=== PATIENT | female | born 1935 | race Caucasian/White ===

== ENCOUNTER 2023-05-19 15:33 | Inpatient (IN) | payer MEDICARE, OTHER, SELFPAY ==
[2023-05-19] VITALS (9 sets, daily range): BP systolic 84–124; BP diastolic 43–70; BMI 20.6; BMI 19.0
[2023-05-19 14:09] LABS: % Basophils 0.3 % (0-2); % Eosinophils 0.9 % (0-6); % Immature Granulocytes 0.4 % (0-0.5); % Lymphocytes 16.1 % (20.5-51.1); % Monocytes 13.3 % (1.7-9.3); Absolute Eosinophils 0.1 10^3/uL (0-0.7); Absolute Lymphocytes 1.4 10^3/uL (1.2-3.4); Absolute Monocytes 1.2 10^3/uL (0.1-0.6); Absolute Neutrophils 6.2 10^3/uL (1.4-6.5); Hematocrit 33.2 % (37.0-47.0); Hemoglobin 11.4 g/dL (12.0-16.0); Mean Corp Hgb Conc. 34.3 g/dL (33.0-37.0); Mean Corpuscular Hgb 31.8 pg (27.0-31.0); Mean Corpuscular Volume 92.7 fL (81.0-99.0); Mean Platelet Volume 11.5 fL (7.4-10.4); Nucleated Red Blood Cells % 0 %; Platelet Count 208 10^3/uL (130-400); Red Blood Cell Count 3.58 10^6/uL (4.20-5.40); Red Cell Dist. Width 19.2 % (11.5-14.5)
[2023-05-19 14:13] LABS: INR 1.36; PT 16.9 Sec (11.4-14.6)
[2023-05-19 14:16] LABS: Lactic Acid 1.3 mmol/L (0.7-2.0)
[2023-05-19 14:19] LABS: ALT (SGPT) 16 U/L (0-35); AST (SGOT) 19 U/L (14-36); Albumin 3.8 g/dl (3.5-5.0); Alkaline Phosphatase 93 U/L (38-126); Blood Urea Nitrogen 110 mg/dl (7-17); Calcium 9.6 mg/dl (8.4-10.2); Carbon Dioxide 22 mmol/L (22-30); Chloride 99 mmol/L (98-107); Estimated Creatinine Clearance 16 ml/min; Glucose 155 mg/dl (70-99); Sodium 133 mmol/L (135-145); Total Bilirubin 0.8 mg/dl (0.2-1.3); eGFR 22.11
[2023-05-19 14:34] LABS: Potassium 5.3 mmol/L (3.5-5.1)
[2023-05-19 14:37] LABS: Erythrocyte Sed Rate 29 mm/hour (0-20)
--- NOTE | 2023-05-19 14:42 | ED.GENMED ---
History of Present Illness
General
Chief Complaint: Skin Problem
Time Seen by Provider: 05/19/23 13:42
Travel History
Have you had any contact with someone who has COVID-19?: No
Do you have any symptoms of coronavirus? Fever > 100 degrees, chills, cough, shortness of breath, sore throat, loss of taste or smell, muscle aches, or headache?: No
History of Present Illness
History of Present Illness:
87-year-old female with history of A-fib and peripheral arterial disease presents to the emergency department for evaluation of necrosis to the right second toe. States that it developed as a small wound approximately 2 weeks ago and is gradually
progressed. She has been following with wound care at [facility] and they were concerned for the progression of symptoms and advised that she follow-up with vascular surgery. She is here today requesting vascular surgery consultation. She did
have ABIs performed yesterday, I was able to see the reports provided by the patient's family shown severe bilateral peripheral arterial disease:
Right posterior tibial noncompressible, right dorsalis pedis 0.27, right first digit noncompressible, left posterior tibial 0.27, left dorsalis pedis 0.53, and left first digit 0.14
She denies any fevers but does have mild pain in the right second toe. She is anticoagulated on Eliquis
Review of Systems
Review of Systems
Allergies reviewed?: Yes
All Other Systems: ROS reviewed and negative except as documented in HPI and ROS
Phy Exam
Physical Exam
Physical Exam:
GEN: Well appearing, NAD, WDWN
Eyes: PERRLA, EOMs intact, no scleral icterus
HENT: NCAT, oral mucosa moist
Lungs: CTAB, no wheezes, rales, rhonchi, normal chest wall excursion
Cardiac: Irregular, normal rate
Neuro: AO x 3, no focal deficits to BUE/BLE, normal sensation throughout
MSK: No gross deformity or ecchymosis. No edema. No digital clubbing
Skin: Dry gangrene of the distal right second toe, the digit is diffusely erythematous extending to the dorsum of the midfoot with scant lymphangitis. Right dorsalis pedis pulse is not found by Doppler, right posterior tibialis is strong and
biphasic by Doppler
Psych: Calm, cooperative, proper hygiene
Course
Orders/Labs/Results
Orders:
Orders
05/19/23 13:42
Cardiac Monitoring- Treatment ONCE
IV Insert/Care/Rem.- Treatment PRN
O2 Therapy [RESP] Urgent
Titrate/Wean O2 to maintain O2 sat greater than (%): 93
Special Instructions: TO MAINTAIN CONTINUOUS O2 SATS > OR = 93%
Pulse Ox/cont/shift [RESP] Urgent
Quantity: 1
Special Instructions: CONTINUOUS
05/19/23 13:44
C-Reactive Protein Urgent
Comment: ADD ON
Complete Blood Count/With Diff Urgent
Comprehensive Metabolic Panel Urgent
Erythrocyte Sed Rate Urgent
Comment: ADD ON
Lactic Acid Q4H
Comment: ON ICE, CANCEL 2ND ORDER IF FIRST LACTIC ACID LEVEL <2
Prothrombin Time Urgent
Blood Culture Q30M
DILAN Source: Blood/Venous
Specimen Description:
Comment: FROM 2 SEPARATE SITES
05/19/23 13:58
Add On- LAB Urgent
Tests Added?: ESR, CRP
CR Toe(s) Min 2 Vw Right Urgent
Comment:
Reason For Exam: distal 2nd toe wound
05/19/23 14:57
0.9% Sodium Chloride 1000 ml [Nss] 1,000 ml IV BOLUS
05/19/23 15:06
Blood Culture Q30M
DILAN Source: Blood/Venous
Specimen Description:
Comment: FROM 2 SEPARATE SITES
05/19/23 15:20
Vancomycin [Vancocin] 1,500 mg 0.9% Sodium Chloride [Nss] 20 ml 0.9% Sodium Chloride 250 ml [Nss] 250 ml IV NOW
05/19/23 15:27
Admit/Transfer Patient As Directed
Co-Sign Provider:
Level of Care: Inpatient admission
Assign to:: Medical/Surgical
Physician / Group: Thee
Diagnosis: Gangrene of toe
Reason for Hospitalization: Gangrene and cellulitis of toe
Expected length of stay greater than two midnights?: Yes
ELOS- Estimated Length of Stay in days: 3
I certify the patient meets the requirements for IP care: Yes
Abnormal Lab Results
05/19/23
13:44
RBC 3.58 L 10^6/uL
(4.20-5.40)
Hgb 11.4 L g/dL
(12.0-16.0)
Hct 33.2 L %
(37.0-47.0)
MCH 31.8 H pg
(27.0-31.0)
RDW 19.2 H %
(11.5-14.5)
MPV 11.5 H fL
(7.4-10.4)
Absolute Monos (auto) 1.2 H 10^3/uL
(0.1-0.6)
Lymphocytes % 16.1 L %
(20.5-51.1)
Monocytes % 13.3 H %
(1.7-9.3)
ESR 29 H mm/hour
(0-20)
PT 16.9 H Sec
(11.4-14.6)
Sodium 133 L mmol/L
(135-145)
Potassium 5.3 H mmol/L
(3.5-5.1)
BUN 110 H* mg/dl
(7-17)
Creatinine 2.1 H mg/dL
(0.6-1.0)
Glucose 155 H mg/dl
(70-99)
C-Reactive Protein 44.30 H mg/L
(0.0-10.00)
Total Protein 6.0 L g/dl
(6.3-8.2)
05/19/23 13:44
05/19/23 13:44
Vital Signs
Initial and Last Documented VS:
Initial Vital Signs
Temp Pulse Resp BP Pulse Ox
98.2 F 62 18 84/43 100
05/19/23 13:13 05/19/23 13:13 05/19/23 13:13 05/19/23 13:13 05/19/23 13:13
Last Documented Vital Signs
Temp Pulse Resp BP Pulse Ox
98.2 F 63 27 112/50 99
05/19/23 13:13 05/19/23 16:00 05/19/23 16:00 05/19/23 16:00 05/19/23 16:00
MDM/Problems Addressed
MDM/Problems Addressed:
Patient with gangrenous changes to the toe with associated erythema concerning for cellulitis versus osteomyelitis. She has severe peripheral arterial disease based on ABIs done outpatient yesterday and right dorsalis pedis pulses diminished on
exam today. She is currently clinically well, mildly hypotensive but this apparently has been ongoing for quite some time. She is also noted to be profoundly uremic although has no acute encephalopathic changes. Vascular surgery and podiatry are
consulted for this patient, podiatry will see at the bedside in the ER. Certainly may require operative intervention given the gaseous changes on x-ray however she is high risk for anything surgical or vascular disease and renal dysfunction. Will
admit to the hospital service, IV antibiotics initiated
*Critical Care Note
Total Time (30-74mins, 75-104mins- exclusive of procedures): Not Applicable
ED Attending Note
-
Portions of this chart may have been created with voice recognition software.� Occasional wrong word or��sound alike� substitutions may have occurred due to the inherent limitations of voice recognition software.
Discharge Plan
Departure
Patient Disposition: Admit
Date of Disposition: 05/19/23
Time of Disposition: 15:01
Presentation/result/management discussed w/ accepting MD/DO: Hospitalist
Discharge Problem:
Gangrene of toe of right foot, Cellulitis of second toe, right, Peripheral arterial disease
Interventions
Interventions:
*Risk Screen - Suicide Last Done: 05/19/23 13:13
*General Assessment Last Done: 05/19/23 13:13
*Neglect/Abuse Screening Last Done: 05/19/23 13:57
ED- Fall Risk Assessment Last Done: 05/19/23 13:53
*ED COVID-19 Vaccine History Last Done: 05/19/23 13:13
ED-Skin Assessment Last Done: 05/19/23 13:53
[2023-05-19] MEDS: NSS 1000 IV (15:06)
[2023-05-19] MEDS: VANCOCIN 300 ML IV (15:48)
[2023-05-19] MEDS: VANCOCIN 300 MG IV (15:48)
--- NOTE | 2023-05-19 15:49 | HPS.HSE ---
Family Physician
-
Family Physician: Dylan Pretty
Chief Complaint
-
Right second toe wound
History of Present Illness
87-year-old female who never been in our hospital with known history of chronic systolic congestive heart failure with EF around 25% and likely this issue with the blood pressure and her Cardiology making some adjustment of blood pressure., chronic
kidney disease with none of the baseline's as well as diabetes and PVD, sent from wound care for evaluation of infected and what sounds like a gangrenous right second toe, started to small wound and blood progressively worsening pain follow-up with
the wound clinic and eventually was asked to see a vascular surgeon and therefore they came to the hospital, denies any fever or chill or cough or congestion, no trauma or accident. Look like she was seen by youth development professional and they do not some foot
work and according to the patient this is happened after that visit there is a small wound and progress gradually. No some pain and discomfort takes tramadol which helped her pain out.
Workup in the ER concerning for gangrenous.
ER physician did reach out to vascular surgeon Dr. Wall.
Patient had arterial ultrasound done yesterday as an outpatient and the results showed per family.
Right posterior tibial noncompressible, right dorsalis pedis 0.27, right first digit noncompressible, left posterior tibial 0.27, left dorsalis pedis 0.53, and left first digit 0.14
She denies any fevers but does have mild pain in the right second toe.
She is anticoagulated on Eliquis.
The x-ray shows some gas
Will reach out to podiatry in the coming down to see the patient and ER.
Accompanied by 2 daughters at the bedside.
She is awake, alert and oriented x 3 hold appropriate conversation
Medical History
Past Medical History
Past Medical History: Reports Other
Additional Past Medical History:
Past medical history reviewed:
Diabetes
Hypertension
Dyslipidemia
Congestive heart failure sound like systolic EF around 2025%
A-fib anticoagulated with Eliquis
PVD
Chronic kidney disease
Social history: Lives with the family, no smoking alcohol use.
Family history: Reviewed and noncontributory
Past Surgical History: Reports Other
Social History
Unable to obtain full social history at this time due to: Other
Family History
Family History: Other
Allergies / Home Medications
Allergies reflects when Allergies were last updated in [employer].
Home Medications with original date entered in [employer]
Allergy/Medication List:
Allergies
Allergy/AdvReac Type Severity Reaction Status Date / Time
latex Allergy Unknown Verified 05/19/23 13:13
Home Medications
allopurinol 100 mg tablet 100 mg PO DAILY 05/19/23
apixaban 2.5 mg tablet (Eliquis) 2.5 mg PO BID 05/19/23
carvedilol 6.25 mg tablet (Coreg) 6.25 mg PO BID 05/19/23
furosemide 20 mg tablet (Lasix) 20 mg PO DAILY 05/19/23
glimepiride 2 mg tablet 2 mg PO DAILY 05/19/23
minocycline 100 mg capsule 100 mg PO BID 05/19/23
sacubitril 24 mg-valsartan 26 mg tablet (Entresto) 1 tab PO BID 05/19/23
spironolactone 25 mg tablet 25 mg PO DAILY 05/19/23
Review of Systems
-
A 12 point ROS was completed and negative except as noted: Yes
Physical Exam
Vital Signs
Vital Signs
Temp Pulse Resp BP Pulse Ox
98.2 F 66 17 86/65 99
05/19/23 13:13 05/19/23 15:30 05/19/23 15:30 05/19/23 15:00 05/19/23 15:30
Physical exam:
General: Awake, alert and oriented x3, not in distress and holds appropriate conversation.
HEENT: No active discharge, ecchymosis or bruising, moist lips, tongue and mucous membrane.
Eyes: No discharge or red conjunctiva, no nystagmus, pupils are reactive and equal
Neck:Supple, no JVD no bruit no goiter.
Respiratory: Normal AP contour and diameter, normal chest wall movement, normal respiratory effort, no respiratory distress,
Lungs: Good air entry bilaterally, no wheezing or rhonchi, no rales or crackles
Heart: S1, S2 regular, normal rate, no added sound.
Gastrointestinal: Positive bowel sounds, soft, nontender, no guarding or rigidity or organomegaly
Musculoskeletal: , no chest wall abnormality or tenderness. All joints and extremities have good range of motion, no muscle tenderness or any joint swelling or tenderness.
Extremities: No pitting edema, good peripheral pulses, good range of motion
Skin: Warm and dry, no ulceration, normal color.
Neurological: Awake, alert and oriented x3, cranial nerve II-XII grossly intact, speech clear and comprehensive, good muscle tone, normal sensory and motor function
Psychiatric: Normal mood, normal thought and judgment, normal affect,
Physical Exam
General: Other
Laboratory Results
-
05/19/23 13:44
05/19/23 13:44
Laboratory Results
PT 16.9 Sec (11.4-14.6) H 05/19/23 13:44
INR 1.36 05/19/23 13:44
Lactic Acid Cancelled 05/19/23 17:45
Total Bilirubin 0.8 mg/dl (0.2-1.3) 05/19/23 13:44
AST 19 U/L (14-36) 05/19/23 13:44
ALT 16 U/L (0-35) 05/19/23 13:44
Alkaline Phosphatase 93 U/L (38-126) 05/19/23 13:44
Right foot x-ray:
Imaging of the right second toe reveals gas within the soft tissues distally. No definite erosive change of the bone however osteomyelitis is better evaluated with MRI.
The findings suggest dislocation of the DIP joint of the right third toe, please correlate clinically. The rest of the toes are poorly visualized on this exam of the second toe.
Data Reviewed
-
Diagnostic Radiology: Image Personally Visualized and interpreted, Discussed with Physician, Discussed with Patient and Discussed with Family
Lab Data: Labs Reviewed by me, Discussed with Physician, Discussed with Patient and Discussed with Family
Old Records: Reviewed
Impression/Plan
-
IMPRESSION:
87-year-old female with history of diabetes, PVD and congestive heart failure sent to the hospital from the wound clinic for evaluation of the second right toes gangrene and x-ray showed gas, vascular surgeon been contacted.
Right second toe gangrene with history of PVD and diabetes mellitus
-Cellulitis of the right second toe
Chronic kidney disease with not now baseline
Congestive heart failure sounding systolic, EF around 25 to 30%
A-fib
Diabetes mellitus
Hypertension
Mild hyperkalemia
PLAN:
Vascular surgery and podiatry will reach out to
Podiatry to come see the patient currently in OR
Keep n.p.o.
Hold Eliquis and hold off heparin anyway in case of the need the patient to the OR if there is no plan then Eliquis versus heparin drip could be started
Cover the broad-spectrum antibiotic with vancomycin and cefepime renally dose
Tylenol and Ultram as needed
I will hold Entresto because of the low normal blood pressure and hyperkalemia
Recheck lab
Avoid IV fluid because of the chronic systolic congestive heart failure
Hold glimepiride
Glucoscan monitor blood sugar
Continue carvedilol.
In case goes to the OR needs close monitoring of the fluid status and vital sign and blood sugar perioperatively.
All discussed with the patient and the 2 daughters at the bedside
CODE STATUS full code
DVT prophylaxis not a candidate for SCD because of the severe PVD and no anticoagulation yet in case goes to the OR.
--- NOTE | 2023-05-19 15:59 | PHA.VAN.IN ---
Assessment
- Assessment
Renal Function: Unknown baseline
Concomitant Antimicrobials: cefepime
Plan
- Plan
Initial / Loading Dose: 1500mg - 05/18 15:48
Maintenance Regimen: dosing by level
Monitoring: random 05/19 06
Pharmacokinetics Vancomycin I
- -
Patient Age: 87
Patient Sex: Female
Vancomycin Day #: 1
Indication: Bone And Joint
Requesting Provider: Dr. Kingston
Pertinent Antimicrobial Allergies:
no pertinent antibiotic allergies
Height / Weight:
Height 5 ft 4 in
Actual Weight 54.4 kg
Pertinent Past Medical History: CKD, DM, PVD
- Vital Signs / Lab Results
Temp Pulse Resp BP Pulse Ox
98.2 F 66 17 86/65 99
05/19/23 13:13 05/19/23 15:30 05/19/23 15:30 05/19/23 15:00 05/19/23 15:30
Lab Results - Hematology
05/19/23
13:44
WBC 9.0
Lab Results - Chemistry
05/19/23
13:44
BUN 110 H*
Creatinine 2.1 H
Estimated Creat Clear 16
Albumin 3.8
05/19/23 05/19/23
13:44 17:45
Lactic Acid 1.3 Cancelled
--- NOTE | 2023-05-19 17:48 | W.PN.UPDATE ---
Update Note
Progress Note Update
pt seen in ER
full consult dictated
dry gangrenous toe right foot
2nd toe debrided and stab incision placed
toe opened and packed, no pus noted
area decompressed in ER
will follow
[2023-05-19] MEDS: STERILE WATER FOR INJECTION 10 ML IV (18:40)
[2023-05-19] MEDS: MAXIPIME 1000 MG IV (18:40)
[2023-05-19] MEDS: NOVOLOG FLEXPEN-MODERATE RESISTANCE SC (19:42)
[2023-05-19] MEDS: COREG PO (20:14)
[2023-05-19] MEDS: ENTRESTO 24 MG/26 MG PO (20:15)
[2023-05-20 05:48] LABS: % Basophils 0.4 % (0-2); % Immature Granulocytes 0.4 % (0-0.5); % Monocytes 18.5 % (1.7-9.3); % Neutrophils 56.7 % (42.2-75.2); Absolute Eosinophils 0.2 10^3/uL (0-0.7); Absolute Lymphocytes 1.5 10^3/uL (1.2-3.4); Absolute Monocytes 1.3 10^3/uL (0.1-0.6); Hematocrit 34.6 % (37.0-47.0); Hemoglobin 11.3 g/dL (12.0-16.0); Mean Corp Hgb Conc. 32.7 g/dL (33.0-37.0); Mean Corpuscular Hgb 30.6 pg (27.0-31.0); Mean Corpuscular Volume 93.8 fL (81.0-99.0); Mean Platelet Volume 11.2 fL (7.4-10.4); Nucleated Red Blood Cells % 0 %; Platelet Count 190 10^3/uL (130-400); Red Blood Cell Count 3.69 10^6/uL (4.20-5.40); Red Cell Dist. Width 18.8 % (11.5-14.5)
[2023-05-20 06:00] VITALS: BMI 19.0
[2023-05-20 06:04] LABS: Blood Urea Nitrogen 99 mg/dl (7-17); Calcium 9.8 mg/dl (8.4-10.2); Carbon Dioxide 19 mmol/L (22-30); Chloride 108 mmol/L (98-107); Estimated Creatinine Clearance 17 ml/min; Glucose 76 mg/dl (70-99); Potassium 5.4 mmol/L (3.5-5.1); Sodium 139 mmol/L (135-145)
[2023-05-20 06:19] LABS: Vancomycin Random 16.9 ug/ml
[2023-05-20 07:14] VITALS: BP 99/58
--- NOTE | 2023-05-20 07:53 | W.PN.POD ---
Today's Communication
Today's Communication
dry gangrene right 2nd toe--stable, packing pulled, C&S taken, no pus, repacked, d/w dr cain yesterday.
pt will need amp 2nd toe pending vasc status
will follow
vasc--please call me with plan
Subjective
Chief Complaint
pt seen at bedside for dry gangene to toe right foot 2nd toe
denies pain f/c
Subjective
vasc pedal pulses non palp cft intact to other toes
derm dry gangrene to 2nd toe right foot, npo pus, no cellulitis, no odor, no pus, dry
Objective
Temp Pulse Resp BP Pulse Ox
97.6 F 67 16 99/58 99
05/20/23 07:14 05/20/23 07:14 05/20/23 07:14 05/20/23 07:14 05/20/23 07:14
05/20/23 05:09
05/20/23 05:09
Vital Signs and Lab results were reviewed.
[2023-05-20 08:19] LABS: Glycohemoglobin (HgbA1c) 8.7 % (4.0-5.6)
--- NOTE | 2023-05-20 08:28 | PHA.VAN.FU ---
Vancomycin Assessment / Plan
- Assessment
Renal Function: SCR Decreasing (2.1->1.8)
WBC's are: WNL
In the past 24 hrs, patient has been: Afebrile
Concomitant Antimicrobials: cefepime
- Assessment - Therapeutic Drug Monitoring
Random Level: 16.9 ~ 13 hours post 1500 mg dose
- Dosing Plan
Continue: dose by random level due to elevated SCr
Dosing by Level: Hold off on dosing today
- Monitoring Plan
Random Level: repeat random level AM 05/21/23
- Follow Up
Pharmacy will continue to follow.
Vancomycin Follow UP
- -
Patient Age: 87
Patient Sex: Female
Vancomycin Day #: 2
Indication: Bone And Joint
Requesting Provider: Dr. Kingston
Pertinent Antimicrobial Allergies:
no pertinent antibiotic allergies
Height / Weight:
Height 5 ft 4 in
Actual Weight 50.065 kg
Pertinent Past Medical History: CKD, DM, PVD
- Vital Signs / Lab Results
Temp Pulse Resp BP Pulse Ox
97.6 F 67 16 99/58 99
05/20/23 07:14 05/20/23 07:14 05/20/23 07:14 05/20/23 07:14 05/20/23 07:14
Lab Results - Hematology
05/19/23 05/20/23
13:44 05:09
WBC 9.0 7.0
Lab Results - Chemistry
05/19/23 05/20/23
13:44 05:09
BUN 110 H* 99 H
Creatinine 2.1 H 1.8 H
Estimated Creat Clear 16 17
Albumin 3.8
05/19/23 05/19/23
13:44 17:45
Lactic Acid 1.3 Cancelled
Therapeutic Drug Monitoring
Random Vancomycin 16.9 ug/ml 05/20/23 05:09
[2023-05-20] MEDS: ENTRESTO 24 MG/26 MG 1 TAB PO (08:34)
[2023-05-20] MEDS: ZYLOPRIM 100 MG PO (08:35)
[2023-05-20] MEDS: COREG 6.25 MG PO ×2 (08:35→20:05)
[2023-05-20] MEDS: ALDACTONE 25 MG PO (08:35)
[2023-05-20] MEDS: LASIX 20 MG PO (08:35)
[2023-05-20 09:25] LABS: Glucose - Point of Care 94 mg/dl (70-99)
[2023-05-20] MEDS: NOVOLOG FLEXPEN-MODERATE RESISTANCE SC ×3 (09:44→19:11)
[2023-05-20] MEDS: LOKELMA 10 GRAM PO (10:46)
[2023-05-20 13:40] VITALS: BMI 19.0
--- NOTE | 2023-05-20 14:19 | W.PN.HOSP.TC ---
Addendum entered and electronically signed by Chevy Da Silva MD 05/20/23 15:42:
stopping abx- dry gangrene; spencer stopping vanco in setting of eveline
Original Note:
Today's Communication/Plan
-
iv lasix
nephro consulted
stop entresto
k treatment
vascular consulted - tentative angio next tuesday
Assessment / Plan
Assessment / Plan
Physical exam:
General: Awake, alert and oriented x3, not in distress and holds appropriate conversation.
HEENT: No active discharge, ecchymosis or bruising, moist lips, tongue and mucous membrane.
Eyes: No discharge or red conjunctiva, no nystagmus, pupils are reactive and equal
Neck:Supple, no JVD no bruit no goiter.
Respiratory: Normal AP contour and diameter, normal chest wall movement, normal respiratory effort, no respiratory distress,
Lungs: Good air entry bilaterally, no wheezing or rhonchi, no rales or crackles
Heart: S1, S2 regular, normal rate, no added sound.
Gastrointestinal: Positive bowel sounds, soft, nontender, no guarding or rigidity or organomegaly
Musculoskeletal: , no chest wall abnormality or tenderness. All joints and extremities have good range of motion, no muscle tenderness or any joint swelling or tenderness.
Extremities: No pitting edema, good peripheral pulses, good range of motion
Skin: dry gangrene to 2nd toe right foot, no cellulitis, no odor, no pus, dry
Neurological: Awake, alert and oriented x3, cranial nerve II-XII grossly intact, speech clear and comprehensive, good muscle tone, normal sensory and motor function
Psychiatric: Normal mood, normal thought and judgment, normal affect,
87-year-old female with history of diabetes, PVD and congestive heart failure sent to the hospital from the wound clinic for evaluation of the second right toes gangrene and x-ray showed gas,
#Right second toe gangrene with history of PVD and diabetes mellitus
-podiatry and vascular consulted
-Angiogram planned for next week
-Will require amputation
#EVELINE
-Scr 1.0 in january
-Vascular requesting nephro consult
-Most likely cardiorenal with EF of 20-25%
-stop entresto
-IV lasix, continue PO dosing otherwise
#Hyperkalemia
-2/2 to EVELINE
-lokelma
-stop entresto
-spironolactone continued due to assistance in diuretics
Acute on Chronic HFrEF
-EF 20-25%
-hold entresto due to EVELINE
-Cont spironolactone
-Scr coming down
-IV Lasix today
-add on probnp
#Afib
start hep ggt
cont coreg
Diabetes mellitus
Hypertension
-cont aiss
-cont spironolactone
#DVT ppx
-Hep ggt
Total time spent on today's encounter was 50 minutes which included time spent in counseling the patient/family regarding diagnosis and treatment plan as listed above, goals of care, and symptom management. Case was discussed with nursing staff,
specialists, and care coordinators/case management. All labs and imaging personally reviewed by me. Remainder the time spent in detailed review of previous records, lab data, imaging, and other medical provider documentation.
Anticipated Discharge: > 48 hours
Subjective/Interval History
-
Date of Service: May 20, 2023
will need to plan for angio and improvement in renal function
Objective Data
-
Labs:
Laboratory Results
05/20/23
05:09
WBC 7.0
Hgb 11.3 L
Hct 34.6 L
Plt Count 190
Sodium 139
Potassium 5.4 H
Chloride 108 H
Carbon Dioxide 19 L
BUN 99 H
Creatinine 1.8 H
Glucose 76
Calcium 9.8
Vital Signs:
Vital Signs
Temp Pulse Resp BP Pulse Ox
97.6 F 67 16 99/58 99
05/20/23 07:14 05/20/23 07:14 05/20/23 07:14 05/20/23 07:14 05/20/23 07:14
Review of Systems
-
History Source: Patient
All other systems: Not reviewed unless documented
Physical Exam
-
General: Well Developed
Data Reviewed
-
Diagnostic Radiology: Image personally visualized and interpreted and Report Reviewed by me
Labs: Labs Reviewed by me
--- NOTE | 2023-05-20 14:28 | CON.VAS ---
Consultation
Consultation Request
Date/Time Consultation Requested: 05/20/23
Date/Time Consultation Performed: 05/20/23
Performing Provider: Mae
Reason for Consultation: PAD; right toe gangrene
Medical History
-
Chief Complaint: Right toe gangrene
History of Present Illness:
87 yo with PAOD
~1 month of progressive pain and gangrene in the toe
Daughter bedside
Grossly abnormal JUANA's at OSH (report viewed)
Recent TTE 20-25%
Past Medical History
Past Medical History: CHF, HTN and Hypercholesterolemia
Social History
Tobacco: Non-Smoker
Allergies / Home Medications
Allergy/AdvReac Type Severity Reaction Status Date / Time
latex Allergy Unknown Verified 05/19/23 13:13
�Medication �Instructions �Recorded �Confirmed �Type
allopurinol 100 mg tablet 100 mg PO DAILY Gout 05/19/23 05/19/23 History
apixaban 2.5 mg tablet (Eliquis) 2.5 mg PO BID Blood Clot 05/19/23 05/19/23 History
Prevention/Tx
carvedilol 6.25 mg tablet (Coreg) 6.25 mg PO BID Heart 05/19/23 05/19/23 History
Disease/Condition
furosemide 20 mg tablet (Lasix) 20 mg PO DAILY Fluid 05/19/23 05/19/23 History
Retention/Swelling
glimepiride 2 mg tablet 2 mg PO DAILY Diabetes 05/19/23 05/19/23 History
minocycline 100 mg capsule 100 mg PO BID Infection 05/19/23 05/19/23 History
sacubitril 24 mg-valsartan 26 mg 1 tab PO BID Heart Failure 05/19/23 05/19/23 History
tablet (Entresto)
spironolactone 25 mg tablet 25 mg PO DAILY Fluid 05/19/23 05/19/23 History
Retention/Swelling
Review of Systems
-
History Source: Patient and Family
All other systems: Negative unless noted
Physical Exam
Vital Signs
Temp Pulse Resp BP Pulse Ox
97.6 F 67 16 99/58 99
05/20/23 07:14 05/20/23 07:14 05/20/23 07:14 05/20/23 07:14 05/20/23 07:14
Lab Results
05/20/23 05:09
05/20/23 05:09
Physical Exam
General: Well Developed and Comfortable
HEENT: Normocephalic
Respiratory: Non Labored Respirations
GI: Soft
Skin: Warm, Dry and Other (Dry gangrene of digit on right foot)
Neuro: AO x 3 and No Motor Deficits
Pulses: Bilateral Femoral: +2
Assessment / Plan
-
87 yo with abnormal ABIs from OSH and toe gangrene. Critical limb threatening ischemia. She also has EVELINE with Cr yesterday of 2.1 (baseline 1 in January).
-Will plan for RLE a'gram and possible intervention next week
-Hydration
-Nephrology consult
-Hold anticoagulation
-Aspirin
-Discussed with podiatry and hospitalist
Call with questions/concerns
Bhanu Wall III, MD
[facility]
[phone] ([phone])
--- NOTE | 2023-05-20 15:01 | CM ---
Alert awake oriented [facility] patient who lives alone with son living next door. She lives in a 2 story home with 1 step to enter and 12 steps to bed room. She is independent all activities of daily living.Requested order for PT OT from MD for dc
planning .
No SNF Hx / [facility] hx
Pharmacy [place]
PCP Dr Potter
PLAN Will need PT OT for dc planning
[2023-05-20 15:06] LABS: NT-proBNP 4030 pg/ml
[2023-05-20 15:07] VITALS: BP 105/57
[2023-05-20 15:30] LABS: Hemoglobin 12.3 g/dL (12.0-16.0); Mean Corp Hgb Conc. 34.2 g/dL (33.0-37.0); Mean Corpuscular Hgb 31.5 pg (27.0-31.0); Mean Corpuscular Volume 92.1 fL (81.0-99.0); Mean Platelet Volume 10.9 fL (7.4-10.4); Platelet Count 213 10^3/uL (130-400); Red Blood Cell Count 3.91 10^6/uL (4.20-5.40); Red Cell Dist. Width 19.4 % (11.5-14.5)
[2023-05-20 15:42] LABS: APTT 37.2 Sec (23.4-35.0)
[2023-05-20] MEDS: LASIX 40 MG IV (16:47)
[2023-05-20] MEDS: HEPARIN 25000 UNITS/250 ML IV (16:48)
[2023-05-20 17:36] LABS: Glucose - Point of Care 111 mg/dl (70-99)
[2023-05-20 21:49] LABS: Glucose - Point of Care 196 mg/dl (70-99)
[2023-05-20 22:50] VITALS: BP 101/54
[2023-05-20] MEDS: TYLENOL 650 MG PO (22:50)
[2023-05-21 06:46] LABS: APTT 80.8 Sec (23.4-35.0)
[2023-05-21 07:00] VITALS: BP 121/70
[2023-05-21 07:12] LABS: ALT (SGPT) 15 U/L (0-35); AST (SGOT) 23 U/L (14-36); Alkaline Phosphatase 102 U/L (38-126); Blood Urea Nitrogen 96 mg/dl (7-17); Calcium 9.8 mg/dl (8.4-10.2); Carbon Dioxide 17 mmol/L (22-30); Chloride 106 mmol/L (98-107); Estimated Creatinine Clearance 14 ml/min; Glucose 127 mg/dl (70-99); Potassium 4.9 mmol/L (3.5-5.1); Sodium 135 mmol/L (135-145); Total Bilirubin 1.2 mg/dl (0.2-1.3); Total Protein 6.4 g/dl (6.3-8.2); eGFR 22.11
[2023-05-21 08:17] LABS: Glucose - Point of Care 129 mg/dl (70-99)
[2023-05-21] MEDS: NOVOLOG FLEXPEN-MODERATE RESISTANCE SC (08:26)
[2023-05-21] MEDS: ALDACTONE 25 MG PO (08:27)
[2023-05-21] MEDS: COREG 6.25 MG PO (08:27)
[2023-05-21] MEDS: ZYLOPRIM 100 MG PO (08:27)
[2023-05-21] MEDS: LASIX 40 MG IV (08:28)
--- NOTE | 2023-05-21 09:12 | W.PN.POD ---
Today's Communication
Today's Communication
dry gangrene right 2nd toe/pad/critical ischemia---toe is stable for now, awaiting vasc intervention, will eventually need toe amp pending vasc intervention
cont abx
will follow
Subjective
Chief Complaint
pt seen at bedside
bandage was off foot
no pain
no f c.s
Subjective
derm 2nd to stable
no edema or erythema, no cellulitis, distal half 2nd toe with dry gangrene, no pus, no odor
Objective
Temp Pulse Resp BP Pulse Ox
97.8 F 72 17 121/70 93
05/21/23 07:00 05/21/23 07:00 05/21/23 07:00 05/21/23 07:00 05/21/23 07:00
05/20/23 15:17
05/21/23 06:24
Vital Signs and Lab results were reviewed.
--- NOTE | 2023-05-21 11:38 | W.CON.NEPH ---
Consultation
-
Date/Time Consultation Requested: May 21, 2023 10 AM
Date/Time Consultation Performed: May 21, 2023 11am
Requesting Provider: Dr. Da Silva
Performing Provider: Dr. Gordon
Reason for Consultation: Acute kidney injury
Medical History
-
Chief Complaint: Acute kidney injury
History of Present Illness:
This is an 87-year-old female who gets her care primarily at an outside hospital who has significant heart failure most recent ejection fraction around 35% back in January of last year. She is treated with multiple medications including Entresto
as well as spironolactone. She is on chronic Lasix therapy to manage her volume status. Her daughter states that they hold the Entresto several times per week given low blood pressures. She has atrial fibrillation on Eliquis therapy as well as
rate control with beta-harley therapy. She also has diabetes on oral medications which has been stable. She presents to the emergency room this time with gangrenous right second toe. She was also noted at that time to have acute kidney injury
with a creatinine of 2.1. She also has metabolic acidosis. Given her gangrene toe, plans are recommended for angiogram. We are asked to assist in management of the acute kidney injury.
Past Medical History
Heart failure reduced ejection fraction, diabetes mellitus type 2, hypertension, hyperlipidemia, atrial fibrillation, peripheral arterial disease, CKD 3
Social History
No tobacco or alcohol
Family History
Family History: Not Pertinent
Allergies / Home Medications
Allergy/AdvReac Type Severity Reaction Status Date / Time
latex Allergy Unknown Verified 05/19/23 13:13
�Medication �Instructions �Recorded �Confirmed �Type
allopurinol 100 mg tablet 100 mg PO DAILY Gout 05/19/23 05/19/23 History
apixaban 2.5 mg tablet (Eliquis) 2.5 mg PO BID Blood Clot 05/19/23 05/19/23 History
Prevention/Tx
carvedilol 6.25 mg tablet (Coreg) 6.25 mg PO BID Heart 05/19/23 05/19/23 History
Disease/Condition
furosemide 20 mg tablet (Lasix) 20 mg PO DAILY Fluid 05/19/23 05/19/23 History
Retention/Swelling
glimepiride 2 mg tablet 2 mg PO DAILY Diabetes 05/19/23 05/19/23 History
minocycline 100 mg capsule 100 mg PO BID Infection 05/19/23 05/19/23 History
sacubitril 24 mg-valsartan 26 mg 1 tab PO BID Heart Failure 05/19/23 05/19/23 History
tablet (Entresto)
spironolactone 25 mg tablet 25 mg PO DAILY Fluid 05/19/23 05/19/23 History
Retention/Swelling
Review of Systems
-
No chest pain. No shortness of breath. No issues with urination. No fevers or chills. Hard of hearing. The remainder of the complete review of systems was negative
Physical Exam
Vital Signs
Vital Signs
Temp Pulse Resp BP Pulse Ox
97.8 F 72 17 121/70 93
05/21/23 07:00 05/21/23 07:00 05/21/23 07:00 05/21/23 07:00 05/21/23 07:00
Lab Results
WBC 7.0 10^3/uL (4.8-10.8) 05/20/23 15:17
RBC 3.91 10^6/uL (4.20-5.40) L 05/20/23 15:17
Hgb 12.3 g/dL (12.0-16.0) 05/20/23 15:17
Hct 36.0 % (37.0-47.0) L 05/20/23 15:17
Plt Count 213 10^3/uL (130-400) 05/20/23 15:17
Sodium 135 mmol/L (135-145) 05/21/23 06:24
Potassium 4.9 mmol/L (3.5-5.1) 05/21/23 06:24
Chloride 106 mmol/L (98-107) 05/21/23 06:24
Carbon Dioxide 17 mmol/L (22-30) L 05/21/23 06:24
BUN 96 mg/dl (7-17) H 05/21/23 06:24
Creatinine 2.1 mg/dL (0.6-1.0) H 05/21/23 06:24
eGFR 22.11 05/21/23 06:24
Glucose 127 mg/dl (70-99) H 05/21/23 06:24
Calcium 9.8 mg/dl (8.4-10.2) 05/21/23 06:24
Ajt-K-Ydcstvocgio Pept 4030 pg/ml 05/20/23 05:09
Albumin 4.0 g/dl (3.5-5.0) 05/21/23 06:24
Physical Exam
General: AOx3
HEENT: PERRL, EOMI, Ear/Nose Intact, Oropharynx Clear/Moist, Neck Supple, Trachea Midline and No Thyromegaly
Respiratory: Clear
Cardiac: Regular Rate/Rhythm and No Edema
Abdomen: Soft, Nontender, Nondistended, Normal Bowel Sounds and No Hepatosplenomegaly
Skin: No Rash and Other (Dusky digits)
Psych: Mood/afflect pleasant and Insight/judgement good
Assessment/Plan
-
Assessment:
Right second toe dry gangrene
Peripheral arterial disease
Acute kidney injury, baseline creatinine 1.0
Heart failure reduced ejection fraction 35%
Atrial fibrillation
Diabetes mellitus type 2
Metabolic acidosis
Plan:
At this point Entresto, spironolactone will be held.
Lasix is held at this time.
I will offer light IV fluids today.
We will check urine studies as well as a postvoid residual. Renal ultrasound may also be checked on Tuesday.
Follow basic metabolic panel
She does not appear to be volume overloaded. I suspect that she may be able to tolerate some volume.
We discussed the risk of contrast nephropathy. I suspect that a creatinine less than 1.5 will be acceptable for angiogram.
This was discussed with the patient and the daughter at bedside.
Data Reviewed
-
Radiology: Report Reviewed by me (Right toe x-ray on May 19, 2023 shows gas around the right second toe, dislocated right third toe)
Medical Tests (Nuc Med, Echo etc): Report Reviewed by me (Echocardiogram on 05/17/2023 shows ejection fraction 35%, moderate MR TR)
Labs: Labs Reviewed by me
Old Records: Reviewed (On February 07, 2023 creatinine 1.08, potassium 3.5, bicarbonate 26)
[2023-05-21 12:22] LABS: Glucose - Point of Care 197 mg/dl (70-99)
[2023-05-21] MEDS: NOVOLOG FLEXPEN-MODERATE RESISTANCE 1 UNITS SC ×2 (12:54→16:56)
[2023-05-21 13:28] LABS: APTT 58.1 Sec (23.4-35.0)
[2023-05-21 13:38] LABS: Urine Albumin Negative (Neg - Trace); Urine Bilirubin Negative (Negative); Urine Character Clear (Clear); Urine Color Yellow; Urine Glucose Negative (Negative); Urine Ketone Negative (Negative); Urine Leukocyte Negative (Negative); Urine Nitrite Negative (Negative); Urine Occult Blood Negative (Negative); Urine Urobilinogen Negative (Neg - 1+)
[2023-05-21] MEDS: SODIUM BICARBONATE 1150 MEQ IV (13:48)
--- NOTE | 2023-05-21 14:05 | W.PN.HOSP.TC ---
Today's Communication/Plan
-
stop diuretics
gentle fluids
monitor sc
ulytes
hep ggt
Assessment / Plan
Assessment / Plan
Physical exam:
General: Awake, alert and oriented x3, not in distress and holds appropriate conversation.
HEENT: No active discharge, ecchymosis or bruising, moist lips, tongue and mucous membrane.
Eyes: No discharge or red conjunctiva, no nystagmus, pupils are reactive and equal
Neck:Supple, no JVD no bruit no goiter.
Respiratory: Normal AP contour and diameter, normal chest wall movement, normal respiratory effort, no respiratory distress,
Lungs: Good air entry bilaterally, no wheezing or rhonchi, no rales or crackles
Heart: S1, S2 regular, normal rate, no added sound.
Gastrointestinal: Positive bowel sounds, soft, nontender, no guarding or rigidity or organomegaly
Musculoskeletal: , no chest wall abnormality or tenderness. All joints and extremities have good range of motion, no muscle tenderness or any joint swelling or tenderness.
Extremities: No pitting edema, good peripheral pulses, good range of motion
Skin: dry gangrene to 2nd toe right foot, no cellulitis, no odor, no pus, dry
Neurological: Awake, alert and oriented x3, cranial nerve II-XII grossly intact, speech clear and comprehensive, good muscle tone, normal sensory and motor function
Psychiatric: Normal mood, normal thought and judgment, normal affect,
87-year-old female with history of diabetes, PVD and congestive heart failure sent to the hospital from the wound clinic for evaluation of the second right toes gangrene and x-ray showed gas,
#Right second toe gangrene with history of PVD and diabetes mellitus
-podiatry and vascular consulted
-Angiogram planned for next week
-Will require amputation
-dc abx as dry gangrene and monitor
#EVELINE
-Scr 1.0 in january
-Vascular requesting nephro consult
-Did not respond with IV Lasix, making cardiorenal etiology not as likely
-stop entresto, spironolactone
� Gentle IV fluids, trial
� Possible renal ultrasound on Tuesday
�Urine studies
#Hyperkalemia
-2/2 to EVELINE
-lokelma
-stop entresto
-spironolactone continued due to assistance in diuretics
Chronic HFrEF
-EF 20-25%
-hold entresto, aldactone due to EVELINE
-hold lasix
#Afib
start hep ggt
cont coreg
Diabetes mellitus
Hypertension
-cont aiss
-cont spironolactone
#DVT ppx
-Hep ggt
Total time spent on today's encounter was 50 minutes which included time spent in counseling the patient/family regarding diagnosis and treatment plan as listed above, goals of care, and symptom management. Case was discussed with nursing staff,
specialists, and care coordinators/case management. All labs and imaging personally reviewed by me. Remainder the time spent in detailed review of previous records, lab data, imaging, and other medical provider documentation.
Anticipated Discharge: > 48 hours
Subjective/Interval History
-
Date of Service: May 21, 2023
No acute events
Objective Data
-
Labs:
Laboratory Results
05/21/23 05/21/23
06:24 11:55
APTT 80.8 H 58.1 H
Sodium 135
Potassium 4.9
Chloride 106
Carbon Dioxide 17 L
BUN 96 H
Creatinine 2.1 H
Glucose 127 H
Calcium 9.8
Total Bilirubin 1.2
AST 23
ALT 15
Alkaline Phosphatase 102
Vital Signs:
Vital Signs
Temp Pulse Resp BP Pulse Ox
97.8 F 72 17 121/70 93
05/21/23 07:00 05/21/23 07:00 05/21/23 07:00 05/21/23 07:00 05/21/23 07:00
I&O
05/20/23 05/21/23 05/22/23
06:59 06:59 06:59
Intake Total 180 / 180
Balance 180 / 180
Review of Systems
-
History Source: Patient
All other systems: Not reviewed unless documented
Physical Exam
-
General: Well Developed
Data Reviewed
-
Labs: Labs Reviewed by me
[2023-05-21 14:17] LABS: Urine Sodium 112 mmol/L (30-90)
[2023-05-21 15:00] VITALS: BP 115/63
[2023-05-21 16:32] LABS: Glucose - Point of Care 189 mg/dl (70-99)
[2023-05-21 17:56] LABS: APTT 122.3 Sec (23.4-35.0)
[2023-05-21] MEDS: COREG PO (20:26)
[2023-05-21] MEDS: TYLENOL 650 MG PO (20:27)
[2023-05-21 21:19] LABS: Glucose - Point of Care 180 mg/dl (70-99)
[2023-05-21 23:40] VITALS: BP 104/56
[2023-05-22 00:52] LABS: APTT 159.5 Sec (23.4-35.0)
[2023-05-22] MEDS: HEPARIN 25000 UNITS/250 ML IV (01:55)
[2023-05-22 06:13] VITALS: BMI 18.6
[2023-05-22 07:00] VITALS: BP 105/66
[2023-05-22 08:13] LABS: APTT 60.2 Sec (23.4-35.0)
[2023-05-22 08:25] LABS: Hematocrit 37.4 % (37.0-47.0); Hemoglobin 12.7 g/dL (12.0-16.0); Mean Corpuscular Hgb 31.1 pg (27.0-31.0); Mean Corpuscular Volume 91.7 fL (81.0-99.0); Mean Platelet Volume 11.1 fL (7.4-10.4); Platelet Count 190 10^3/uL (130-400); Red Blood Cell Count 4.08 10^6/uL (4.20-5.40); Red Cell Dist. Width 18.1 % (11.5-14.5); White Blood Cell Count 7.9 10^3/uL (4.8-10.8)
[2023-05-22 08:26] LABS: ALT (SGPT) 14 U/L (0-35); AST (SGOT) 20 U/L (14-36); Albumin 3.5 g/dl (3.5-5.0); Alkaline Phosphatase 99 U/L (38-126); Blood Urea Nitrogen 96 mg/dl (7-17); Calcium 9.5 mg/dl (8.4-10.2); Carbon Dioxide 26 mmol/L (22-30); Chloride 98 mmol/L (98-107); Estimated Creatinine Clearance 16 ml/min; Glucose 133 mg/dl (70-99); Potassium 4.7 mmol/L (3.5-5.1); Sodium 132 mmol/L (135-145); Total Bilirubin 1.4 mg/dl (0.2-1.3); Total Protein 5.7 g/dl (6.3-8.2); eGFR 24.93
[2023-05-22 08:28] LABS: Glucose - Point of Care 119 mg/dl (70-99)
[2023-05-22] MEDS: NOVOLOG FLEXPEN-MODERATE RESISTANCE SC (08:38)
[2023-05-22] MEDS: ZYLOPRIM 100 MG PO (08:56)
[2023-05-22] MEDS: COREG 6.25 MG PO ×2 (09:16→20:45)
[2023-05-22] MEDS: TYLENOL 650 MG PO ×3 (09:23→22:21)
--- NOTE | 2023-05-22 10:27 | W.PN.UPDATE ---
Update Note
Progress Note Update
pt seen at bedside
tendet toe
no f.communications assistant
vasc critical ischemia, awaiting vasc intervention/agram when stable
derm toe is dry, no pus
no odor
no cellulitis
dry gangrene
a/p dry gangrene 2nd toe right---stable
awaiting vasc intervention, will round every few days, foot stable
please call with vasc plan
[2023-05-22 11:42] LABS: Glucose - Point of Care 283 mg/dl (70-99)
--- NOTE | 2023-05-22 11:48 | W.PN.NEPH.PH ---
Today's Communication / Plan
-
follow BMP
Assessment/Plan
-
Assessment:
Right second toe dry gangrene
Peripheral arterial disease
Acute kidney injury, baseline creatinine 1.0
Heart failure reduced ejection fraction 35%
Atrial fibrillation
Diabetes mellitus type 2
Metabolic acidosis
Plan:
Entresto, spironolactone will be held still
Lasix is held at this time.
I will continue light IV fluids today.
Renal ultrasound may also be checked on Tuesday.
Follow basic metabolic panel
She does not appear to be volume overloaded. I suspect that she may be able to tolerate some more volume.
We discussed the risk of contrast nephropathy. I suspect that a creatinine less than 1.5 will be acceptable for angiogram.
This was discussed with the patient and the family at bedside. They understand that Agram could be done at higher Cr, but there would be increased risk.
-
-
Date of Service: May 22, 2023
CC / HPI / ROS
-
Chief Complaint:
EVELINE
History of Present Illness:
EVELINE/Cr down to 1.9
BP stable
no foot pain
Review of Systems:
no CP/SOB
Labs
-
Labs:
WBC 7.9 10^3/uL (4.8-10.8) 05/22/23 07:35
RBC 4.08 10^6/uL (4.20-5.40) L 05/22/23 07:35
Hgb 12.7 g/dL (12.0-16.0) 05/22/23 07:35
Hct 37.4 % (37.0-47.0) 05/22/23 07:35
Plt Count 190 10^3/uL (130-400) 05/22/23 07:35
Sodium 132 mmol/L (135-145) L 05/22/23 07:35
Potassium 4.7 mmol/L (3.5-5.1) 05/22/23 07:35
Chloride 98 mmol/L (98-107) 05/22/23 07:35
Carbon Dioxide 26 mmol/L (22-30) 05/22/23 07:35
BUN 96 mg/dl (7-17) H 05/22/23 07:35
Creatinine 1.9 mg/dL (0.6-1.0) H 05/22/23 07:35
eGFR 24.93 05/22/23 07:35
Glucose 133 mg/dl (70-99) H 05/22/23 07:35
Calcium 9.5 mg/dl (8.4-10.2) 05/22/23 07:35
Nkf-X-Utnmsszfdli Pept 4030 pg/ml 05/20/23 05:09
Albumin 3.5 g/dl (3.5-5.0) 05/22/23 07:35
Physical Exam
-
Vital Signs:
Vital Signs
Temp Pulse Resp BP Pulse Ox
97.5 F 73 17 105/66 99
05/22/23 07:00 05/22/23 07:00 05/22/23 07:00 05/22/23 07:00 05/22/23 07:00
Cardiovascular:: Regular rate and rhythm
Respiratory:: Bilateral: Coarse
Lung Excursion:: Normal
Abdomen:: Nontender and Soft
Bowel Sounds:: Normal
Extremity Edema:: None: Bilateral:
[2023-05-22] MEDS: NSS 1000 IV (12:11)
[2023-05-22] MEDS: NOVOLOG FLEXPEN-MODERATE RESISTANCE 5 UNITS SC (13:03)
--- NOTE | 2023-05-22 13:08 | W.PN.HOSP.TC ---
Today's Communication/Plan
-
fluids
start back abx
monitor scr
Assessment / Plan
Assessment / Plan
Physical exam:
General: Awake, alert and oriented x3, not in distress and holds appropriate conversation.
HEENT: No active discharge, ecchymosis or bruising, moist lips, tongue and mucous membrane.
Eyes: No discharge or red conjunctiva, no nystagmus, pupils are reactive and equal
Neck:Supple, no JVD no bruit no goiter.
Respiratory: Normal AP contour and diameter, normal chest wall movement, normal respiratory effort, no respiratory distress,
Lungs: Good air entry bilaterally, no wheezing or rhonchi, no rales or crackles
Heart: S1, S2 regular, normal rate, no added sound.
Gastrointestinal: Positive bowel sounds, soft, nontender, no guarding or rigidity or organomegaly
Musculoskeletal: , no chest wall abnormality or tenderness. All joints and extremities have good range of motion, no muscle tenderness or any joint swelling or tenderness.
Extremities: No pitting edema, good peripheral pulses, good range of motion
Skin: dry gangrene to 2nd toe right foot, no cellulitis, no odor, no pus, dry
Neurological: Awake, alert and oriented x3, cranial nerve II-XII grossly intact, speech clear and comprehensive, good muscle tone, normal sensory and motor function
Psychiatric: Normal mood, normal thought and judgment, normal affect,
87-year-old female with history of diabetes, PVD and congestive heart failure sent to the hospital from the wound clinic for evaluation of the second right toes gangrene and x-ray showed gas,
#Right second toe gangrene with history of PVD and diabetes mellitus
-podiatry and vascular consulted
-Angiogram planned for next week once renal function improves
-Will require amputation
-wound culture growing strep agalactiae and proteus - can provide unasyn and stop once assumption of surgical cure
#EVELINE
-Scr 1.0 in january
-Did not respond with IV Lasix, making cardiorenal etiology not as likely
-stop entresto, spironolactone
� Gentle IV fluids, trial
� Possible renal ultrasound on Tuesday
�renal following
#Hyperkalemia
-2/2 to EVELINE
-s/p lokelma
-stop entresto
-spironolactone continued due to assistance in diuretics
#Hyponatremia
-monitor
Chronic HFrEF
-EF 20-25%
-hold entresto, aldactone due to EVELINE
-hold lasix
#Afib
hep ggt
cont coreg
Diabetes mellitus
Hypertension
-cont aiss
-cont spironolactone
#DVT ppx
-Hep ggt
Total time spent on today's encounter was 52 minutes which included time spent in counseling the patient/family regarding diagnosis and treatment plan as listed above, goals of care, and symptom management. Case was discussed with nursing staff,
specialists, and care coordinators/case management. All labs and imaging personally reviewed by me. Remainder the time spent in detailed review of previous records, lab data, imaging, and other medical provider documentation.
Anticipated Discharge: > 48 hours
Subjective/Interval History
-
Date of Service: May 22, 2023
No acute events
Objective Data
-
Labs:
Laboratory Results
05/22/23 05/22/23
07:35 14:30
WBC 7.9
Hgb 12.7
Hct 37.4
Plt Count 190
APTT 60.2 H Pending
Sodium 132 L
Potassium 4.7
Chloride 98
Carbon Dioxide 26
BUN 96 H
Creatinine 1.9 H
Glucose 133 H
Calcium 9.5
Total Bilirubin 1.4 H
AST 20
ALT 14
Alkaline Phosphatase 99
Vital Signs:
Vital Signs
Temp Pulse Resp BP Pulse Ox
97.5 F 73 17 105/66 99
05/22/23 07:00 05/22/23 07:00 05/22/23 07:00 05/22/23 07:00 05/22/23 07:00
I&O
05/21/23 05/22/23 05/23/23
06:59 06:59 06:59
Intake Total 180 / 180 680 / 680
Output Total 625 / 625
Balance 180 / 180 55 / 55
Review of Systems
-
History Source: Patient
All other systems: Not reviewed unless documented
Data Reviewed
-
Diagnostic Radiology: Image personally visualized and interpreted and Report Reviewed by me
Labs: Labs Reviewed by me
[2023-05-22 14:57] LABS: APTT 69.5 Sec (23.4-35.0)
[2023-05-22 15:00] VITALS: BP 92/47
[2023-05-22] MEDS: UNASYN IV ×2 (15:12→20:45)
[2023-05-22 16:36] LABS: Glucose - Point of Care 152 mg/dl (70-99)
[2023-05-22 16:53] VITALS: BP 100/65
[2023-05-22] MEDS: NOVOLOG FLEXPEN-HIGH RESISTANCE SC (17:17)
[2023-05-22 21:18] LABS: APTT 132.2 Sec (23.4-35.0)
[2023-05-22 22:21] LABS: Glucose - Point of Care 124 mg/dl (70-99)
[2023-05-23 00:54] VITALS: BP 98/49
[2023-05-23] MEDS: UNASYN IV ×3 (02:56→21:19)
[2023-05-23 06:00] VITALS: BMI 18.4
[2023-05-23 06:12] LABS: APTT 106.9 Sec (23.4-35.0)
[2023-05-23 06:19] LABS: ALT (SGPT) 12 U/L (0-35); AST (SGOT) 17 U/L (14-36); Albumin 3.2 g/dl (3.5-5.0); Alkaline Phosphatase 95 U/L (38-126); Blood Urea Nitrogen 82 mg/dl (7-17); Calcium 9.5 mg/dl (8.4-10.2); Carbon Dioxide 26 mmol/L (22-30); Chloride 103 mmol/L (98-107); Estimated Creatinine Clearance 17 ml/min; Glucose 101 mg/dl (70-99); Potassium 5.3 mmol/L (3.5-5.1); Sodium 135 mmol/L (135-145); Total Bilirubin 1.2 mg/dl (0.2-1.3); Total Protein 5.3 g/dl (6.3-8.2); eGFR 28.49
[2023-05-23 07:00] VITALS: BP 102/64
[2023-05-23 08:05] LABS: Glucose - Point of Care 92 mg/dl (70-99)
[2023-05-23] MEDS: NOVOLOG FLEXPEN-HIGH RESISTANCE SC ×2 (08:35→16:56)
[2023-05-23] MEDS: COREG 6.25 MG PO ×2 (08:38→21:15)
[2023-05-23] MEDS: ZYLOPRIM 100 MG PO (08:40)
[2023-05-23] MEDS: TYLENOL 650 MG PO ×2 (08:59→21:15)
[2023-05-23 11:58] LABS: Glucose - Point of Care 213 mg/dl (70-99)
[2023-05-23] MEDS: NOVOLOG FLEXPEN-HIGH RESISTANCE 4 UNITS SC (12:22)
[2023-05-23] MEDS: NSS 1000 IV (12:23)
[2023-05-23 12:58] LABS: APTT 110.9 Sec (23.4-35.0)
--- NOTE | 2023-05-23 13:05 | W.PN.HOSP.TC ---
Addendum entered and electronically signed by Chevy Da Silva MD 05/23/23 16:01:
Moderate Malnutrition
EVELINE - baseline Scr 1 in dec as per daughter records
Original Note:
Today's Communication/Plan
-
angiogram tomorrow as long as Scr stabilizes/improves
npo at [facility], hold hep ggt prior to procedure
Lokelma
Monitor BMP with gentle fluids
Assessment / Plan
Assessment / Plan
Physical exam:
General: Awake, alert and oriented x3, not in distress and holds appropriate conversation.
HEENT: No active discharge, ecchymosis or bruising, moist lips, tongue and mucous membrane.
Eyes: No discharge or red conjunctiva, no nystagmus, pupils are reactive and equal
Neck:Supple, no JVD no bruit no goiter.
Respiratory: Normal AP contour and diameter, normal chest wall movement, normal respiratory effort, no respiratory distress,
Lungs: Good air entry bilaterally, no wheezing or rhonchi, no rales or crackles
Heart: S1, S2 regular, normal rate, no added sound.
Gastrointestinal: Positive bowel sounds, soft, nontender, no guarding or rigidity or organomegaly
Musculoskeletal: , no chest wall abnormality or tenderness. All joints and extremities have good range of motion, no muscle tenderness or any joint swelling or tenderness.
Extremities: No pitting edema, good peripheral pulses, good range of motion
Skin: dry gangrene to 2nd toe right foot, no cellulitis, no odor, no pus, dry
Neurological: Awake, alert and oriented x3, cranial nerve II-XII grossly intact, speech clear and comprehensive, good muscle tone, normal sensory and motor function
Psychiatric: Normal mood, normal thought and judgment, normal affect,
87-year-old female with history of diabetes, PVD and congestive heart failure sent to the hospital from the wound clinic for evaluation of the second right toes gangrene and x-ray showed gas,
#Right second toe gangrene with history of PVD and diabetes mellitus
-podiatry and vascular consulted
-Angiogram planned for tomorrow anticipating renal function stabilizes, improved
-Will require amputation
-wound culture growing strep agalactiae and proteus - can provide unasyn and stop once assumption of surgical cure
#EVELINE
-Scr 1.0 in january
-Did not respond with IV Lasix, making cardiorenal etiology not as likely
-stop entresto, spironolactone
� Gentle IV fluids
�renal following
#Hyperkalemia
-2/2 to EVELINE
-s/p lokelma, 1 dose today
-stop entresto
-spironolactone continued due to assistance in diuretics
#Hyponatremia
-monitor
-resolved
Chronic HFrEF
-EF 20-25%
-hold entresto, aldactone due to EVELINE
-hold lasix
#Afib
hep ggt - hold prior to procedure
cont coreg
Diabetes mellitus
Hypertension
-cont aiss
-cont spironolactone
#DVT ppx
-Hep ggt
Total time spent on today's encounter was 53 minutes which included time spent in counseling the patient/family regarding diagnosis and treatment plan as listed above, goals of care, and symptom management. Case was discussed with nursing staff,
specialists, and care coordinators/case management. All labs and imaging personally reviewed by me. Remainder the time spent in detailed review of previous records, lab data, imaging, and other medical provider documentation.
Anticipated Discharge: > 48 hours
Subjective/Interval History
-
Date of Service: May 23, 2023
No acute events
Objective Data
-
Labs:
Laboratory Results
05/23/23 05/23/23 05/23/23
05:10 05:40 12:33
APTT Cancelled 106.9 H 110.9 H
Sodium 135
Potassium 5.3 H
Chloride 103
Carbon Dioxide 26
BUN 82 H
Creatinine 1.7 H
Glucose 101 H
Calcium 9.5
Total Bilirubin 1.2
AST 17
ALT 12
Alkaline Phosphatase 95
Vital Signs:
Vital Signs
Temp Pulse Resp BP Pulse Ox
97.5 F 78 16 102/64 95
05/23/23 07:00 05/23/23 08:38 05/23/23 07:00 05/23/23 08:38 05/23/23 11:05
I&O
05/22/23 05/23/23 05/24/23
06:59 06:59 06:59
Intake Total 680 / 680 1420 / 1420
Output Total 625 / 625
Balance 55 / 55 1420 / 1420
Review of Systems
-
History Source: Patient
All other systems: Not reviewed unless documented
Physical Exam
-
General: Well Developed
Data Reviewed
-
Diagnostic Radiology: Image personally visualized and interpreted and Report Reviewed by me
Labs: Labs Reviewed by me
[2023-05-23] MEDS: LOKELMA 10 GRAM PO (13:30)
[2023-05-23] MEDS: HEPARIN 25000 UNITS/250 ML IV (13:30)
--- NOTE | 2023-05-23 14:01 | PN.CDI ---
CDI
- -
CDI:
Physician Documentation Request
Admit Date: 05/19/23 15:33
Dear Doctor Avinash,
H&P list history of CKD 'with no known baseline' but not in subsequent documentation
Nephrology notes and hospitalist progress notes states 'EVELINE'
Please clarify the patients renal status:
EVELINE only
EVELINE on CKD
Other
Use of terms such as suspected, likely, concern for, or probable (associated with a specific diagnosis that is being evaluated, monitored, or treated as if it exists) are acceptable and can be coded in the inpatient setting, when documented at the
time of discharge.
Thank you,
Kena Jaime RN, BSN
CDI Specialist
tiger text
Please use your independent medical judgment in providing your response.
--- NOTE | 2023-05-23 14:05 | PN.CDI ---
CDI
- -
CDI:
Physician Documentation Request
Admit Date: 05/19/23 15:33
Dear Doctor Avinash,
05/19 RD note states 'During visit RD able to visualize moderate protrusion of clavical apparent ribs, temporal wasting and orbital area loss. With weight loss > 20% in 1 year observed muscle and fat loss pt meets AND/ASPEN criteria for moderate
protein calorie malnutrition.'
Based on the information, which of the following most accurately represents the patient's nutritional status?
Moderate Malnutrition
No nutritional deficiency
Other (please specify)e
[place] Criteria ([facility] Hospitalist 2017)
2 or more criteria must be present for either
non severe or severe malnutrition
Note that the criteria differs related to the
presence of an acute or chronic illness
Acute Illness Chronic Illness
Energy Intake Non Severe: <75% for >7 days Non Severe: <75% for >1 month
Severe: <50% for >5 days Severe: <75% for >1 month
Weight Loss Non Severe: 1-2% over 1 week Non Severe: 5% over 1 month
5% over 1 month 7.5% over 3 months
7.5% over 3 months 10% over 6 months
1 year N/A 20% over 1 year
Severe: >2% over 1 week Severe: >5% over 1 month
>5% over 1 month >7.5% over 3 months
>7.5% over 3 months >10% over 6 months
1 year N/A >20% over 1 year
Body Fat Non Severe: Mild Decrease Non Severe: Mild Loss
Severe: Moderate Decrease Severe: Severe Loss
Muscle Mass Non Severe: Mild Decrease Non Severe: Mild Loss
Severe: Moderate Decrease Severe: Severe Loss
Fluid Accumulation Non Severe: Mild Accumulation Non Severe: Mild Accumulation
Severe: Moderate to severe Severe: Moderate to severe
accumulation accumulation
Reduced Laundry [place] Strength Non Severe: N/A Non Severe: N/A
Severe: Measurably reduced Severe: Measurably reduced
Additional criteria that can be used to Determine if Mild or Moderate Malnutrition ([employer] Manual 2018)
Mild Moderate Severe
Albumin gm/dl <3.0 gm/dl <2.5 gm/dl <2.0 gm/dl
Pre Albumin mg/dl <15 gm/dl <10 mg/dl <5.0 mg/dl
BMI <18.5 <17 <16
Use of terms such as suspected, likely, concern for, or probable (associated with a specific diagnosis that is being evaluated, monitored, or treated as if it exists) are acceptable and can be coded in the inpatient setting, when documented at the
time of discharge.
Thank you,
Kena Jaime RN, BSN
CDI Specialist
tiger text
Please use your independent medical judgment in providing your response.
[2023-05-23 15:00] VITALS: BP 102/63
--- NOTE | 2023-05-23 15:33 | W.PN.NEPH.PH ---
Today's Communication / Plan
-
cont IVF
Assessment/Plan
-
Assessment:
Right second toe dry gangrene
Peripheral arterial disease
Acute kidney injury, baseline creatinine 1.0
Heart failure reduced ejection fraction 35%
Atrial fibrillation
Diabetes mellitus type 2
Metabolic acidosis
Plan:
Entresto, spironolactone will be held still
Lasix is held at this time.
I will continue light IV fluids today, .
check Renal ultrasound for baseline
She does not appear to be volume overloaded. I suspect that she may be able to tolerate some more volume.
d/w pt and family at bedside
potassium slightly high-dose Lokelma today
We discussed the risk of contrast nephropathy. I suspect that a creatinine less than 1.5 will be acceptable for angiogram tentative tomorrrow.
Previously Dr Gordon discussed with the patient and the family at bedside. They understand that Agram could be done at higher Cr, but there would be increased risk.
d/w vasc
-
-
Date of Service: May 23, 2023
CC / HPI / ROS
-
Chief Complaint:
EVELINE
History of Present Illness:
EVELINE/Cr down to 1.7
BP stable
potassium 5.3
Review of Systems:
no CP/SOB
Labs
-
Labs:
WBC 7.9 10^3/uL (4.8-10.8) 05/22/23 07:35
RBC 4.08 10^6/uL (4.20-5.40) L 05/22/23 07:35
Hgb 12.7 g/dL (12.0-16.0) 05/22/23 07:35
Hct 37.4 % (37.0-47.0) 05/22/23 07:35
Plt Count 190 10^3/uL (130-400) 05/22/23 07:35
Sodium 135 mmol/L (135-145) 05/23/23 05:10
Potassium 5.3 mmol/L (3.5-5.1) H 05/23/23 05:10
Chloride 103 mmol/L (98-107) 05/23/23 05:10
Carbon Dioxide 26 mmol/L (22-30) 05/23/23 05:10
BUN 82 mg/dl (7-17) H 05/23/23 05:10
Creatinine 1.7 mg/dL (0.6-1.0) H 05/23/23 05:10
eGFR 28.49 05/23/23 05:10
Glucose 101 mg/dl (70-99) H 05/23/23 05:10
Calcium 9.5 mg/dl (8.4-10.2) 05/23/23 05:10
Dqv-E-Lfxnlbbcffr Pept 4030 pg/ml 05/20/23 05:09
Albumin 3.2 g/dl (3.5-5.0) L 05/23/23 05:10
Physical Exam
-
Vital Signs:
Vital Signs
Temp Pulse Resp BP Pulse Ox
97.5 F 78 16 102/64 95
05/23/23 07:00 05/23/23 08:38 05/23/23 07:00 05/23/23 08:38 05/23/23 11:05
Cardiovascular:: Regular rate and rhythm
Respiratory:: Bilateral: CTA
Lung Excursion:: Normal
Abdomen:: Nontender and Soft
Extremity Edema:: None: Bilateral:
Wall Catheter: No
--- NOTE | 2023-05-23 15:33 | W.PN.UPDATE ---
Update Note
Progress Note Update
Patient seen at bedside with her 2 daughters, informed patient and family of plan for or tomorrow for right lower extremity arteriogram. Again reviewed procedure, risks versus benefits, and addressed all questions and concerns. Daughters and
patient agreeable to proceed. Will make n.p.o. after midnight. Hospitalist and refining engineer updated on plans for arteriogram tomorrow via [place] text.
--- NOTE | 2023-05-23 16:50 | CM ---
Spoke with [facility] pt and family at bedside.
For an arteriogram tomorrow.
PT OT needs to be reordered postop.
Will need PT OT to determine dc plan.
PLAN CM will continue to assess and assist with dc plan
[2023-05-23 16:52] LABS: Glucose - Point of Care 129 mg/dl (70-99)
[2023-05-23 21:03] LABS: Glucose - Point of Care 216 mg/dl (70-99)
[2023-05-24] VITALS (27 sets, daily range): BP systolic 114–152; BP diastolic 52–81; BMI 19.5
[2023-05-24] MEDS: TYLENOL 650 MG PO ×4 (01:16→21:38)
[2023-05-24 05:32] LABS: Glucose - Point of Care 97 mg/dl (70-99)
[2023-05-24 07:33] LABS: Hematocrit 30.9 % (37.0-47.0); Hemoglobin 10.3 g/dL (12.0-16.0); Mean Corp Hgb Conc. 33.3 g/dL (33.0-37.0); Mean Corpuscular Hgb 31.3 pg (27.0-31.0); Mean Corpuscular Volume 93.9 fL (81.0-99.0); Mean Platelet Volume 11.5 fL (7.4-10.4); Platelet Count 151 10^3/uL (130-400); Red Blood Cell Count 3.29 10^6/uL (4.20-5.40); Red Cell Dist. Width 18.5 % (11.5-14.5); White Blood Cell Count 6.4 10^3/uL (4.8-10.8)
[2023-05-24 07:46] LABS: APTT 99.8 Sec (23.4-35.0)
[2023-05-24 08:23] LABS: ALT (SGPT) 12 U/L (0-35); AST (SGOT) 18 U/L (14-36); Alkaline Phosphatase 83 U/L (38-126); Blood Urea Nitrogen 55 mg/dl (7-17); Calcium 9.2 mg/dl (8.4-10.2); Carbon Dioxide 24 mmol/L (22-30); Chloride 109 mmol/L (98-107); Estimated Creatinine Clearance 21 ml/min; Glucose 91 mg/dl (70-99); Potassium 5.4 mmol/L (3.5-5.1); Sodium 137 mmol/L (135-145); Total Bilirubin 1.1 mg/dl (0.2-1.3)
[2023-05-24] MEDS: ZYLOPRIM 100 MG PO (09:26)
[2023-05-24] MEDS: UNASYN IV ×2 (09:27→21:37)
[2023-05-24] MEDS: COREG 6.25 MG PO ×2 (09:27→21:36)
--- NOTE | 2023-05-24 10:19 | W.SUR.PREOP ---
Pre-Operative Surgical Note
-
I have examined this patient prior to the performance of the scheduled procedure.
The patient's condition is unchanged from the time of the current History and
Physical and the patient is able to undergo the scheduled procedure.
--- NOTE | 2023-05-24 10:51 | W.PN.HOSP.TC ---
Today's Communication/Plan
-
see A/P
Assessment / Plan
Assessment / Plan
87-year-old female with history of diabetes, PVD and congestive heart failure sent to the hospital from the wound clinic for evaluation of the second right toes gangrene and x-ray showed gas,
A/P:
# Right second toe gangrene with history of PVD and diabetes mellitus
podiatry and vascular on board
For Angiogram today 05/23
Plan for toe amputation following angio
wound culture growing strep agalactiae and proteus, cont unasyn and stop once assumption of surgical cure
# EVELINE , improving
SCr 1.5 today from 2.1 on admission, was at 1.0 in January
stopped Entresto, spironolactone
s/p Gentle IV fluids
renal following
# Hyperkalemia 2/2 to EVELINE
lokelma x1 today
stopped Entresto/Spironolactone
# Hyponatremia, resolved
# Chronic HFrEF, EF 20-25%
# Hypertension
hold Entresto, Aldactone due to EVELINE
hold lasix
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
# Afib
hep ggt - hold prior to procedure
cont coreg
# Diabetes mellitus
DVT ppx-Hep ggt
DW daughter at bedside
Anticipated Discharge: 24 - 48 hours
Subjective/Interval History
-
Date of Service: May 24, 2023
Objective Data
-
Labs:
Laboratory Results
05/24/23
07:03
WBC 6.4
Hgb 10.3 L
Hct 30.9 L
Plt Count 151 D
APTT 99.8 H
Sodium 137
Potassium 5.4 H
Chloride 109 H
Carbon Dioxide 24
BUN 55 H
Creatinine 1.5 H
Glucose 91
Calcium 9.2
Total Bilirubin 1.1
AST 18
ALT 12
Alkaline Phosphatase 83
Vital Signs:
Vital Signs
Temp Pulse Resp BP Pulse Ox
36.4 C 77 17 117/74 99
05/24/23 07:00 05/24/23 09:27 05/24/23 07:00 05/24/23 09:27 05/24/23 07:00
I&O
05/23/23 05/24/23 05/25/23
06:59 06:59 06:59
Intake Total 1420 / 1420 1460 / 1460
Balance 1420 / 1420 1460 / 1460
Review of Systems
-
All other systems: Reviewed and negative
Physical Exam
-
General: Well Developed, Well Nourished, No Apparent Distress, Comfortable and Conversant; Negative Respiratory Distress
HEENT: Normocephalic, Atraumatic, Nose Appears Normal, Ears Appear Normal and Hearing Impaired; Negative Oxygen
Respiratory: Clear to Auscultation and Non Labored Respirations; Negative Accessory Resp Muscle Use
Cardiac: Regular Rhythm and S1/S2
GI: Soft, Nontender, Nondistended and Normal Bowel Sounds
Musculoskeletal: Other (dry gangrene to 2nd toe right foot, no cellulitis, no odor, no pus, dry)
Skin: Warm and Dry
Neuro: Awake, Alert and Oriented
Psych: Calm and Intact Judgement/Insight
Data Reviewed
-
Labs: Labs Reviewed by me
[2023-05-24] MEDS: LOKELMA 10 GRAM PO (11:13)
[2023-05-24 11:54] LABS: Glucose - Point of Care 87 mg/dl (70-99)
[2023-05-24] MEDS: NSS IV (14:31)
--- NOTE | 2023-05-24 14:39 | W.SUR.POST ---
Surgical Immediate Post Op
Note
Pre Op Diagnosis: Peripheral arterial disease, nonhealing right foot wound
Post Op Diagnosis: Same
Procedure Performed: Diagnostic right lower extremity arteriogram
Primary Surgeon: Bhanu Wall III, MD
Secondary Surgeons: N/A
Anesthesia: MAC
Estimated Blood Loss: 2 ml
Fluids: See anesthesia flowsheet
Drains/Shunts: N/A
Specimens/Cultures: N/A
Doppler/Duplex/Angio (Y/N):Y
Complications: None
Operative Findings: Significant arterial disease that is not amenable to endovascular intervention, recommending arterial bypass for revascularization
[2023-05-24 14:59] LABS: Glucose - Point of Care 84 mg/dl (70-99)
--- NOTE | 2023-05-24 15:10 | OR.RPT ---
Operative Report
Operative Report
Date of Operation: May 24, 2023
Pre Op Diagnosis: Critical limb threatening ischemia, right lower extremity
Post Op Diagnosis: Critical limb threatening ischemia, right lower extremity
Procedure:
1.) Selective catheterization of second-order lower extremity artery
2.) Diagnostic aortobiiliac arteriogram
3.) Diagnostic right lower extremity arteriogram
4.) Ultrasound-guided percutaneous access to the left common femoral artery
Surgeon: Bhanu Wall III, MD
Anesthesia: Sedation with local
Fluoroscopy:
7.8 min
27 mGy
5.85 Gy.cm2
Complications: None
Estimated Blood Loss: Less than 20 cc
History and Indications for Procedure: 87-year-old female with critical limb threatening ischemia of her right lower extremity manifested by rest pain and gangrenous toe on the right foot
Procedure in Detail: Rosario Shukla was correctly identified and placed supine on the operating table. After adequate induction of anesthesia the bilateral groins were prepped and draped in the usual sterile fashion. A timeout was performed with
the nursing and anesthesia staff confirming the patient's identity as well as the nature and laterality of the procedure.
The left common femoral artery was identified under ultrasound guidance. The artery was patent. The superior and inferior aspects of the femoral head were identified with radiographic guidance and marked at the skin level. The proposed puncture site
was infiltrated with local anesthesia. We saved a copy of the ultrasound image to the medical record. Under ultrasound guidance we accessed the left common femoral artery with a micropuncture needle and upsized to a 5 Fr sheath over a Bentson wire.
The wire and a Shepherdooyoo hook flush catheter were advanced into the distal abdominal aorta and a diagnostic aorto-biiliac arteriogram was performed:
AORTO-ILIAC ARTERIOGRAM:
Aorta: Patent with no significant stenosis identified
Right common iliac artery: Patent with no significant stenosis identified
Right external iliac artery: Patent with no significant stenosis identified
Left common iliac artery: Patent with no significant stenosis identified
Left external iliac artery: Patent with no significant stenosis identified
Under roadmap guidance using a Glidewire and the Shepherdooyoo hook catheter we selected the right common iliac artery and then the external iliac artery. The catheter was tracked up and over the aortic bifurcation and placed in the distal external
iliac artery. A diagnostic right lower extremity arteriogram was then performed which demonstrated the following:
RIGHT LOWER EXTREMITY:
Common femoral artery: Patent with no significant stenosis identified
Profunda femoral artery: Patent with no significant stenosis identified
Superficial femoral artery: Patent with no significant stenosis identified
Popliteal artery: Patent. Focal occlusion behind the knee. Sluggish faint reconstitution of the below-knee segment.
Anterior tibial artery: Occluded. Distal AT/dorsalis pedis reconstitutes at the ankle
Tibioperoneal trunk: Heavily calcified and occluded
Peroneal artery: Occluded. Reconstituted near the distal calf/ankle via collaterals.
Posterior tibial artery: Occluded. Plantar branches reconstitute from collaterals.
Satisfied with this diagnostic result we concluded the procedure. The catheter was pulled from the 5 Scottish sheath. The 5 Scottish sheath was secured in the groin with the plan to pull it in the recovery room.
The patient tolerated the procedure well and was taken to the recovery area in stable condition.
Attestation: I was present and responsible for the entire procedure.
Signed:
Bhanu Wall III, MD
[facility] Vascular Surgery
[phone] (gutd)
--- NOTE | 2023-05-24 15:45 | PTCARENOTE ---
Received patient from PACU s/p R lower ext arteriogram. Dressing to L groin CDI. Patient denies pain/SOB. VSS. Family at bedside. Call hyde within reach. Family at bedside.
[2023-05-24] MEDS: NSS 1000 IV (15:57)
[2023-05-24 17:15] LABS: Glucose - Point of Care 78 mg/dl (70-99)
--- NOTE | 2023-05-24 18:13 | W.PN.NEPH.PH ---
Today's Communication / Plan
-
IVF cont lower rate
Assessment/Plan
-
Assessment:
Right second toe dry gangrene
Peripheral arterial disease
Acute kidney injury, baseline creatinine 1.0
Heart failure reduced ejection fraction 35%
Atrial fibrillation
Diabetes mellitus type 2
Metabolic acidosis
Plan:
Entresto, spironolactone will be held still
Lasix is held at this time. cr improved to 1.5
I will continue light IV fluids today, .
non acute Renal ultrasound
potassium slightly high-s/p Lokelma today
s/p angiogram today and found PAD not amenable for endovascular intervention
We discussed the risk of contrast nephropathy in the past and today.
follow daily BMP
-
-
Date of Service: May 24, 2023
CC / HPI / ROS
-
Chief Complaint:
EVELINE
History of Present Illness:
EVELINE/Cr down to 1.5
BP stable
potassium 5.4
Review of Systems:
no CP/SOB
Labs
-
Labs:
WBC 6.4 10^3/uL (4.8-10.8) 05/24/23 07:03
RBC 3.29 10^6/uL (4.20-5.40) L 05/24/23 07:03
Hgb 10.3 g/dL (12.0-16.0) L 05/24/23 07:03
Hct 30.9 % (37.0-47.0) L 05/24/23 07:03
Plt Count 151 10^3/uL (130-400) D 05/24/23 07:03
Sodium 137 mmol/L (135-145) 05/24/23 07:03
Potassium 5.4 mmol/L (3.5-5.1) H 05/24/23 07:03
Chloride 109 mmol/L (98-107) H 05/24/23 07:03
Carbon Dioxide 24 mmol/L (22-30) 05/24/23 07:03
BUN 55 mg/dl (7-17) H 05/24/23 07:03
Creatinine 1.5 mg/dL (0.6-1.0) H 05/24/23 07:03
eGFR 33.10 05/24/23 07:03
Glucose 91 mg/dl (70-99) 05/24/23 07:03
Calcium 9.2 mg/dl (8.4-10.2) 05/24/23 07:03
Pme-G-Fgxnvqsvaes Pept 4030 pg/ml 05/20/23 05:09
Albumin 3.0 g/dl (3.5-5.0) L 05/24/23 07:03
Physical Exam
-
Vital Signs:
Vital Signs
Temp Pulse Resp BP Pulse Ox
97.4 F 60 16 132/74 100
05/24/23 15:45 05/24/23 15:45 05/24/23 15:45 05/24/23 15:45 05/24/23 15:45
Cardiovascular:: Regular rate and rhythm
Respiratory:: Bilateral: CTA
Lung Excursion:: Normal
Abdomen:: Nontender and Soft
Extremity Edema:: None: Bilateral:
Wall Catheter: No
[2023-05-24 22:24] LABS: Glucose - Point of Care 160 mg/dl (70-99)
[2023-05-25 03:55] VITALS: BP 110/73
[2023-05-25] MEDS: NSS 1000 IV (05:28)
[2023-05-25] MEDS: TYLENOL 650 MG PO ×2 (05:33→20:16)
[2023-05-25 05:34] LABS: Hematocrit 28.6 % (37.0-47.0); Hemoglobin 9.6 g/dL (12.0-16.0); Mean Corp Hgb Conc. 33.6 g/dL (33.0-37.0); Mean Corpuscular Hgb 31.8 pg (27.0-31.0); Mean Corpuscular Volume 94.7 fL (81.0-99.0); Mean Platelet Volume 11.3 fL (7.4-10.4); Platelet Count 141 10^3/uL (130-400); Red Blood Cell Count 3.02 10^6/uL (4.20-5.40); Red Cell Dist. Width 18.7 % (11.5-14.5); White Blood Cell Count 6.2 10^3/uL (4.8-10.8)
[2023-05-25 05:57] LABS: Blood Urea Nitrogen 40 mg/dl (7-17); Calcium 8.9 mg/dl (8.4-10.2); Carbon Dioxide 23 mmol/L (22-30); Chloride 111 mmol/L (98-107); Estimated Creatinine Clearance 22 ml/min; Glucose 78 mg/dl (70-99); Magnesium 2.1 mg/dl (1.6-2.3); Potassium 4.9 mmol/L (3.5-5.1); Sodium 137 mmol/L (135-145); eGFR 35.96
[2023-05-25] MEDS: ZYLOPRIM 100 MG PO (08:05)
[2023-05-25] MEDS: COREG 6.25 MG PO ×2 (08:05→20:20)
[2023-05-25 08:07] LABS: Glucose - Point of Care 94 mg/dl (70-99)
[2023-05-25] MEDS: NOVOLOG FLEXPEN-HIGH RESISTANCE SC ×2 (08:10→11:53)
--- NOTE | 2023-05-25 09:19 | W.PN.VS ---
Today's Communication / Plan
-
See below.
Assessment/Plan
-
Assessment: 87 year old female with PAD, POD# 1 Diagnostic right lower extremity arteriogram
Plan:
Ok to resume heparin infusion for anticoagulation
Family meeting this afternoon to determine if they want to proceed with arterial bypass
Subjective Data
-
Date of Service: May 25, 2023
Patient seen and examined at bedside, offers no complaints. Denies pain at left groin site. Denies nausea, vomiting, fever, and chills.
Objective Data
-
Vital Signs
Temp Pulse Resp BP Pulse Ox
98.2 F 70 17 110/73 95
05/25/23 03:55 05/25/23 08:05 05/25/23 03:55 05/25/23 08:05 05/25/23 03:55
Intake and Output
05/24/23 05/25/23 05/26/23
06:59 06:59 06:59
Intake Total 1460 / 1460 1505 / 1505
Balance 1460 / 1460 1505 / 1505
Intake:
Oral fluids 900 / 900 675 / 675
IV fluids (Total) 440 / 440 660 / 660
NS 100 / 100
IV piggybacks 120 / 120 170 / 170
Other:
Number of approximated SMALL 1
amounts of urine
Number of approximated MODERATE 2 1
amounts of urine
How many times incontinent 2
SATURATED amount urine
Number of unmeasured liquid
stools
Rectum 1
Lab Results
05/25/23 05:02
05/25/23 05:02
Calcium 8.9 mg/dl (8.4-10.2) 05/25/23 05:02
Magnesium 2.1 mg/dl (1.6-2.3) 05/25/23 05:02
Total Bilirubin 1.1 mg/dl (0.2-1.3) 05/24/23 07:03
AST 18 U/L (14-36) 05/24/23 07:03
ALT 12 U/L (0-35) 05/24/23 07:03
Alkaline Phosphatase 83 U/L (38-126) 05/24/23 07:03
Total Protein 5.0 g/dl (6.3-8.2) L 05/24/23 07:03
Albumin 3.0 g/dl (3.5-5.0) L 05/24/23 07:03
Physical Exam
-
AAOx3, no apparent distress
No tachycardia
No dyspnea on room air
ABD flat, non-tender, non-distended
left groin CDI, no evidence of hematoma
--- NOTE | 2023-05-25 09:49 | W.PN.UPDATE ---
Update Note
Progress Note Update
d/w dr cain via [place] text yesterday. Plan is for pt to family meeting to discuss tx plan. PLease call and let me know plan
[2023-05-25] MEDS: UNASYN IV ×2 (09:52→21:17)
--- NOTE | 2023-05-25 10:17 | W.PN.HOSP.TC ---
Today's Communication/Plan
-
see A/P
Assessment / Plan
Assessment / Plan
87-year-old female with history of diabetes, PVD and congestive heart failure sent to the hospital from the wound clinic for evaluation of the second right toes gangrene and x-ray showed gas,
A/P:
# Right second toe gangrene with history of PVD and diabetes mellitus
# Critical limb threatening ischemia, right lower extremity
s/p Angiogram by vascular 05/23, await family discussion to be held by vascular regarding plan (bypass, major amputation, no surgery)
wound culture growing strep agalactiae and proteus, cont unasyn and stop once assumption of surgical cure
ID CS for Abx recc given pt is already leaning toward no surgical plan
# EVELINE , improving
SCr 1.4 today from 2.1 on admission, was at 1.0 in January
holding Entresto/spironolactone
s/p gentle IV fluids
renal following
# Hyperkalemia / to EVELINE, resolved
s/p lokelma
holding Entresto/spironolactone
# Hyponatremia, resolved
# Chronic HFrEF, EF 20-25%
# Hypertension
holding Entresto/spironolactone due to EVELINE
holding lasix
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
# Afib
hep ggt periop
cont coreg
# Diabetes mellitus
DVT ppx-Hep ggt
DW daughter at bedside
Anticipated Discharge: 24 - 48 hours
Subjective/Interval History
-
Date of Service: May 25, 2023
Objective Data
-
Labs:
Laboratory Results
05/25/23
05:02
WBC 6.2
Hgb 9.6 L
Hct 28.6 L
Plt Count 141
Sodium 137
Potassium 4.9
Chloride 111 H
Carbon Dioxide 23
BUN 40 H
Creatinine 1.4 H
Glucose 78
Calcium 8.9
Vital Signs:
Vital Signs
Temp Pulse Resp BP Pulse Ox
36.8 C 70 17 110/73 95
05/25/23 03:55 05/25/23 08:05 05/25/23 03:55 05/25/23 08:05 05/25/23 03:55
I&O
05/24/23 05/25/23 05/26/23
06:59 06:59 06:59
Intake Total 1460 / 1460 1505 / 1505
Balance 1460 / 1460 1505 / 1505
Review of Systems
-
All other systems: Reviewed and negative
Physical Exam
-
General: Well Developed, Well Nourished, No Apparent Distress, Comfortable and Conversant; Negative Respiratory Distress
HEENT: Normocephalic, Atraumatic, Nose Appears Normal, Ears Appear Normal and Hearing Impaired; Negative Oxygen
Respiratory: Clear to Auscultation and Non Labored Respirations; Negative Accessory Resp Muscle Use
Cardiac: Regular Rhythm and S1/S2
GI: Soft, Nontender, Nondistended and Normal Bowel Sounds
Musculoskeletal: Other (dry gangrene to 2nd toe right foot, no cellulitis, no odor, no pus, dry)
Skin: Warm and Dry
Neuro: Awake, Alert and Oriented
Psych: Calm and Intact Judgement/Insight
Data Reviewed
-
Labs: Labs Reviewed by me
--- NOTE | 2023-05-25 11:32 | PN.CDI ---
CDI
- -
CDI:
Physician Documentation Request
Admit Date: 05/19/23 15:33
Dear Doctor Sarkis,
Podiatry consultation states ' In the treatment room the area was debrided, a small stab incision was made over this area...'
Could you provide, in the progress notes further clarification regarding the debridement.
Please specify the type of debridement performed:
1. Excisional Debridement - defined as removal by excision of devitalized tissue, necrosis or slough
2. Non-excisional debridement - defined as removal of devitalized tissue, necrosis or slough by such methods as irrigation, brushing, scrubbing or washing.
If the debridement was excisional, please also include:
1. Type of instrument used (#11 blade, #15 blade etc.)
2. What was excised (necrotic tissue, gangrenous tissue, slough etc.)
For excisional or non-excisional, please also include:
1. Depth of debridement (skin, subcutaneous tissue, fascia, muscle, bone etc)
2. Size and appearance of the wound (L, W, D, color of wound, drainage)
Use of terms such as suspected, likely, concern for, or probable (associated with a specific diagnosis that is being evaluated, monitored, or treated as if it exists) are acceptable and can be coded in the inpatient setting, when documented at the
time of discharge.
Thank you,
Kena Jaime RN, BSN
CDI Specialist
tiger text
Please use your independent medical judgment in providing your response.
--- NOTE | 2023-05-25 11:45 | PN.CDI ---
CDI
- -
CDI:
Physician Documentation Request
Admit Date: 05/19/23 15:33
Dear Doctor Abel,
Patient admitted with right second toe gangrene.
Patient noted to have history of atrial fib and was on heparin drip that was held prior to procedure.
If possible, please provide further specificity regarding atrial fibrillation, such as:
Paroxysmal atrial fibrillation - terminates spontaneously or with intervention within 7 days of onset
Persistent atrial fibrillation - episodes of continuous AF that last more than 7 days and do not self-terminate
Permanent atrial fibrillation - when a decision has been made to accept the presence of AF and there is no further attempt to restore or maintain sinus rhythm
Other - please specify
Use of terms such as suspected, likely, concern for, or probable (associated with a specific diagnosis that is being evaluated, monitored, or treated as if it exists) are acceptable and can be coded in the inpatient setting, when documented at the
time of discharge.
Thank you,
Kena Jaime RN, BSN
CDI Specialist
tiger text
Please use your independent medical judgment in providing your response.
[2023-05-25 11:53] LABS: Glucose - Point of Care 116 mg/dl (70-99)
--- NOTE | 2023-05-25 14:38 | CON.ID ---
Consultation
-
Date/Time Consultation Requested: 05/25/23 10:39
Date/Time Consultation Performed: 05/25/23 14:39
Requesting Provider: Dr Roman
Performing Provider: Dr Stevens
Reason for Consultation: Right second toe gangrene
Chief Complaint / Past History
Chief Complaint
Right second toe wound
History of Present Illness
Ms Shukla is an 87 year old female with history of CHF ef 25%, CAD/PAD, CKD, referred to the hospital 05/18 for a wound on the right second toe for about 1 month with progressive pain and gangrenous changes - cyanois and dry eschar. Then develoed
swelilng and redness. No fevers, chills, night sweats, nausea or vomiting. ABIs were done at OSH and notably abnormal. She was admitted found to have critical limb threatening ischemia, EVELINE with Cr 2.1 from baseline of 1 in january, she was seen
by podiatry and vascular surgery; planned for catheterization which was done on 05/23 family are actively discussing bypass vs amputation vs no surgery. Patient initially started on vanc and cefepime on 05/18, switched to unasyn 05/21 which has
continued. Since arrival she has been afebrile, bp stable, without leukocytosis throughout this time, hgb 9.6, plt 141, no left ship was present on arrival, Cr has improved from 2.1 to 1., K 4.9, t bili 1.1, ast 18, alt 12, alk phos 83, ua without
pyuria, toe xray: gas in the soft tissues, no definite osteomyelitis, dislocation of the DIP, a wound culture has grown proteus and GBS, blood cultures are finalized negative, mrsa screen is negative. iD is consulted for assistance with management.
Past History
Additional Past Medical History:
Diabetes
Hypertension
Dyslipidemia
Congestive heart failure sound like systolic EF around 5%
A-fib anticoagulated with Eliquis
PVD
Chronic kidney disease
Past Surgical History: None
Allergy History:
latex Allergy (Verified 05/19/23 13:13)
Unknown
Medications Reviewed: Yes
Social History
Tobacco: Non-Smoker
Alcohol: None
Drug: None
Family History
Family History: Not Pertinent
Review of Systems
Review of Systems
General: Negative Fever or Chills
All systems: All other systems were reviewed and were negative
Vital Signs
Temp Pulse Resp BP Pulse Ox
98.2 F 70 17 110/73 95
05/25/23 03:55 05/25/23 08:05 05/25/23 03:55 05/25/23 08:05 05/25/23 03:55
Physical Exam
Physical Exam
Constitutional: No Acute Distress and Chronically Ill
Cardiovascular: Regular Rate and S1/S2; Negative Murmur or Rub
Pulmonary: Clear and Symmetric; Negative Wheezes, Rales or Rhonchi
Gastrointestinal: Soft, Non Tender, Non Distended and Normal Bowel Sounds
Skin: Warm and Dry; Negative Rash or Jaundice
Lab / Diagnostic Study Results
05/25/23 05:02
05/25/23 05:02
Abs Immat Gran (auto) 0.0 10^3/uL (0-0.05) 05/20/23 05:09
Absolute Neuts (auto) 4.0 10^3/uL (1.4-6.5) 05/20/23 05:09
Absolute Lymphs (auto) 1.5 10^3/uL (1.2-3.4) 05/20/23 05:09
Absolute Monos (auto) 1.3 10^3/uL (0.1-0.6) H 05/20/23 05:09
Absolute Basos (auto) 0.0 10^3/uL (0-0.2) 05/20/23 05:09
Immature Gran % 0.4 % (0-0.5) 05/20/23 05:09
Neutrophils % 56.7 % (42.2-75.2) 05/20/23 05:09
Lymphocytes % 21.0 % (20.5-51.1) 05/20/23 05:09
Monocytes % 18.5 % (1.7-9.3) H 05/20/23 05:09
Eosinophils % 3.0 % (0-6) 05/20/23 05:09
Basophils % 0.4 % (0-2) 05/20/23 05:09
ESR 29 mm/hour (0-20) H 05/19/23 13:44
PT 16.9 Sec (11.4-14.6) H 05/19/23 13:44
INR 1.36 05/19/23 13:44
Lactic Acid Cancelled 05/19/23 17:45
C-Reactive Protein 44.30 mg/L (0.0-10.00) H 05/19/23 13:44
Microbiology Results
Micro:
05/19/23 15:06 Blood Culture - Final
Blood/Venous No Growth - Final Report
05/19/23 13:44 Blood Culture - Final
Blood/Venous No Growth - Final Report
05/20/23 08:15 Wound Culture - Final
Foot - Right Proteus mirabilis
Streptococcus agalactiae
Gram Stain - Final
05/20/23 06:14 MRSA Screen - Final
Nose No Methicillin Resistant Staphylococcus aureus isolated.
Assessment / Plan
Gangrene of the 2nd Right Toe - currently dry
Some possible assc cellulitis
- blood cultures negative
- wound culture GBS and proteus
- agree with unasyn
- while gangrene can remain stable for some time, there is considerable risk of progression to wet gangrene/progression of cellulitis with limb threatening ischemic in her case. Gangrene can eventually develop into septic shock and progress to
if not addressed. If medical management alone is pursued, then I would recommend a hospice based plan of care. Discussed with patient and her two adult daughters. They expressed appreciation and will continue pondering this difficult
situation. We will discuss further tomorrow.
--- NOTE | 2023-05-25 15:54 | W.PN.NEPH.PH ---
Today's Communication / Plan
-
Follow BMP
Entresto and Lasix currently held
Assessment/Plan
-
Assessment:
Right second toe dry gangrene
Peripheral arterial disease
Acute kidney injury, baseline creatinine 1.0
Heart failure reduced ejection fraction 35%
Atrial fibrillation
Diabetes mellitus type 2
Metabolic acidosis
Plan:
Entresto, spironolactone will be held still
Lasix is held at this time. cr improved to 1.4
Hemodynamically more stable
potassium slightly improved-s/p Lokelma yesterday
s/p angiogram today and found PAD not amenable for endovascular intervention
previously discussed the risk of contrast nephropathy yesterday
follow daily BMP
-
-
Date of Service: May 25, 2023
CC / HPI / ROS
-
Chief Complaint:
EVELINE
History of Present Illness:
EVELINE/Cr down to 1.5
BP stable
potassium 5.4
Review of Systems:
no CP/SOB
Labs
-
Labs:
WBC 6.2 10^3/uL (4.8-10.8) 05/25/23 05:02
RBC 3.02 10^6/uL (4.20-5.40) L 05/25/23 05:02
Hgb 9.6 g/dL (12.0-16.0) L 05/25/23 05:02
Hct 28.6 % (37.0-47.0) L 05/25/23 05:02
Plt Count 141 10^3/uL (130-400) 05/25/23 05:02
Sodium 137 mmol/L (135-145) 05/25/23 05:02
Potassium 4.9 mmol/L (3.5-5.1) 05/25/23 05:02
Chloride 111 mmol/L (98-107) H 05/25/23 05:02
Carbon Dioxide 23 mmol/L (22-30) 05/25/23 05:02
BUN 40 mg/dl (7-17) H 05/25/23 05:02
Creatinine 1.4 mg/dL (0.6-1.0) H 05/25/23 05:02
eGFR 35.96 05/25/23 05:02
Glucose 78 mg/dl (70-99) 05/25/23 05:02
Calcium 8.9 mg/dl (8.4-10.2) 05/25/23 05:02
Lyg-A-Hchztnqczjc Pept 4030 pg/ml 05/20/23 05:09
Albumin 3.0 g/dl (3.5-5.0) L 05/24/23 07:03
Physical Exam
-
Vital Signs:
Vital Signs
Temp Pulse Resp BP Pulse Ox
98.2 F 70 17 110/73 95
05/25/23 03:55 05/25/23 08:05 05/25/23 03:55 05/25/23 08:05 05/25/23 03:55
Cardiovascular:: Regular rate and rhythm
Respiratory:: Bilateral: CTA
Lung Excursion:: Normal
Abdomen:: Nontender
Bowel Sounds:: Normal
Extremity Edema:: None: Bilateral:
Wall Catheter: No
--- NOTE | 2023-05-25 16:25 | CM ---
Spoke with [facility] pt and family at bedside.
PT recommended VN
Spoke with family and patient . Offered VN they picked [facility] VN Referral placed in care port.
IMM reviewed with jovan and signed on chart.
Pt is surrounded by family at her home.
PLAN Home with [facility]
--- NOTE | 2023-05-25 16:51 | W.PN.UPDATE ---
Update Note
Progress Note Update
I had a detailed meeting with Rosario Shukla and multiple family members at the bedside. I explained the results of her arteriogram yesterday. I explained that there are no meaningful endovascular options to treat her arterial disease. I discussed
the potential options:
- RLE bypass. The technical aspects of this procedure were discussed with her and her family in detail. The benefits and rationale for this approach were discussed with her in detail. Operative risks were discussed with her in detail including but
not limited to WI, stroke, bleeding, infection, wound healing complications, swelling, bypass failure and the need for additional surgery. Anticipated postop recovery was also discussed with them, both inpatient and outpatient.
- Major amputation above the knee. The technical aspects of this procedure were discussed with her and her family in detail. The benefits and rationale for this approach were discussed with her in detail. Operative risks were discussed with her in
detail including but not limited to WI, stroke, bleeding, infection, wound healing complications and the need for additional surgery. Anticipated postop recovery was also discussed with them, both inpatient and outpatient.
- No surgery. This plan would include supportive measures to maintain QOL. Pain control. Local wound care to the toe. Interval outpatient followup. The advantage of no surgical intervention was discussed. The risk with this approach is continued
progression of the wound, additional infection and clinical deterioration which could lead to systemic illness and .
She and her family expressed a clear understanding of our conversation and the options. They have decided for no surgery. Palliative care involvement would be appropriate. She can see me as an outpatient for continued followup. Obtain input from
podiatry and ID.
Call with questions/concerns
Bhanu Wall III, MD
Vascular Surgery
[phone] (urjy)
[2023-05-25 17:08] LABS: Glucose - Point of Care 189 mg/dl (70-99)
[2023-05-25] MEDS: NOVOLOG FLEXPEN-HIGH RESISTANCE 2 UNITS SC (17:09)
[2023-05-25 17:16] LABS: APTT 63.5 Sec (23.4-35.0)
[2023-05-25 18:32] VITALS: BP 144/68
[2023-05-25 22:37] LABS: Glucose - Point of Care 185 mg/dl (70-99)
[2023-05-25 23:40] VITALS: BP 139/76
[2023-05-26] MEDS: HEPARIN 25000 UNITS/250 ML IV (00:29)
[2023-05-26] MEDS: TYLENOL 650 MG PO (01:36)
[2023-05-26 06:00] VITALS: BMI 20.5
[2023-05-26 06:10] LABS: Hematocrit 28.8 % (37.0-47.0); Hemoglobin 9.5 g/dL (12.0-16.0); Mean Corpuscular Hgb 31.8 pg (27.0-31.0); Mean Corpuscular Volume 96.3 fL (81.0-99.0); Mean Platelet Volume 11.2 fL (7.4-10.4); Platelet Count 128 10^3/uL (130-400); Red Blood Cell Count 2.99 10^6/uL (4.20-5.40); Red Cell Dist. Width 18.6 % (11.5-14.5); White Blood Cell Count 7.7 10^3/uL (4.8-10.8)
[2023-05-26 06:22] LABS: APTT 123.2 Sec (23.4-35.0)
[2023-05-26 07:00] VITALS: BP 153/77
[2023-05-26 07:21] LABS: Blood Urea Nitrogen 34 mg/dl (7-17); Carbon Dioxide 21 mmol/L (22-30); Chloride 110 mmol/L (98-107); Estimated Creatinine Clearance 23 ml/min; Glucose 108 mg/dl (70-99); Potassium 4.7 mmol/L (3.5-5.1); Sodium 135 mmol/L (135-145); eGFR 35.96
[2023-05-26 07:56] LABS: Glucose - Point of Care 115 mg/dl (70-99)
--- NOTE | 2023-05-26 08:24 | W.PN.UPDATE ---
Update Note
Progress Note Update
pt seen at bedside with family member
no pain
ready to go home
Pt and family opted for no surgical intervention at this time
They understand dry gangrene can become wet and infectious and may need sx
Exlained SOI, if occur they are to call
Fu in 1 week
[2023-05-26] MEDS: COREG 6.25 MG PO (09:04)
[2023-05-26] MEDS: ZYLOPRIM 100 MG PO (09:04)
[2023-05-26] MEDS: NOVOLOG FLEXPEN-HIGH RESISTANCE SC (09:04)
--- NOTE | 2023-05-26 09:42 | W.PN.HOSP.TC ---
Addendum entered and electronically signed by Gypsy Roman MD 05/26/23 16:22:
# Likely Paroxysmal atrial fibrillation
Addendum entered and electronically signed by Gypsy Roman MD 05/26/23 14:09:
Total DC time 35 minutes
Original Note:
Today's Communication/Plan
-
DC home today with HH
Assessment / Plan
Assessment / Plan
87-year-old female with history of diabetes, PVD and congestive heart failure sent to the hospital from the wound clinic for evaluation of the second right toes gangrene and x-ray showed gas,
A/P:
# Right second toe gangrene with history of PVD and diabetes mellitus
# Critical limb threatening ischemia, right lower extremity
s/p Angiogram by vascular 05/23
Pt and family have decided against further surgical intervention.
She can follow up with podaitry outpt.
wound culture growing strep agalactiae and proteus
unasyn to transition to PO Augmentin for 7 days. Pt and family have been informed of potential infection with gangrenous toe. They understand the risk.
# EVELINE , improving
SCr 1.4 today from 2.1 on admission, was at 1.0 in January
holding Entresto/spironolactone
s/p gentle IV fluids
renal following
Check BMP outpt in 1 week with result to PCP
# Hyperkalemia 2/2 to EVELINE, resolved
s/p lokelma
holding Entresto/spironolactone, would discontinue going forward
# Hyponatremia, resolved
# Chronic HFrEF, EF 20-25%
# Hypertension
holding Entresto/spironolactone due to EVELINE
holding lasix
Cont OIL LEASE OPERATOR Coreg
# Afib
hep ggt -> OIL LEASE OPERATOR Eliquis
cont coreg
# Diabetes mellitus
DVT ppx-hep ggt -> OIL LEASE OPERATOR Eliquis
DW RN
DW daughter at bedside
DW ID
Anticipated Discharge: Today
Subjective/Interval History
-
Date of Service: May 26, 2023
Objective Data
-
Labs:
Laboratory Results
05/25/23 05/26/23 05/26/23
23:33 06:03 12:30
WBC 7.7
Hgb 9.5 L
Hct 28.8 L
Plt Count 128 L
APTT 119.0 H 123.2 H Pending
Sodium 135
Potassium 4.7
Chloride 110 H
Carbon Dioxide 21 L
BUN 34 H
Creatinine 1.4 H
Glucose 108 H
Calcium 9.0
Vital Signs:
Vital Signs
Temp Pulse Resp BP Pulse Ox
36.6 C 67 16 153/77 99
05/26/23 07:00 05/26/23 09:04 05/26/23 07:00 05/26/23 09:04 05/26/23 07:00
I&O
05/25/23 05/26/23 05/27/23
06:59 06:59 06:59
Intake Total 1505 / 1505 960 / 960
Balance 1505 / 1505 960 / 960
Review of Systems
-
All other systems: Reviewed and negative
Physical Exam
-
General: Well Developed, Well Nourished, No Apparent Distress, Comfortable and Conversant; Negative Respiratory Distress
HEENT: Normocephalic, Atraumatic, Nose Appears Normal, Ears Appear Normal and Hearing Impaired; Negative Oxygen
Respiratory: Clear to Auscultation and Non Labored Respirations; Negative Accessory Resp Muscle Use
Cardiac: Regular Rhythm and S1/S2
GI: Soft, Nontender, Nondistended and Normal Bowel Sounds
Musculoskeletal: Other (dry gangrene to 2nd toe right foot, no cellulitis, no odor, no pus, dry)
Skin: Warm and Dry
Neuro: Awake, Alert and Oriented
Psych: Calm and Intact Judgement/Insight
Data Reviewed
-
Labs: Labs Reviewed by me
[2023-05-26] MEDS: ELIQUIS 2.5 MG PO (10:24)
[2023-05-26] MEDS: UNASYN IV (10:25)
[2023-05-26 11:59] VITALS: BP 131/71
--- NOTE | 2023-05-26 13:52 | W.DCSUMMARY ---
Discharge Summary
Discharge Data
Date of Admission: 05/19/23
Date of Discharge: 05/26/23
-
Pending Results: No
Hospital Course
Principal Diagnosis:
Right second toe gangrene with history of peripheral vascular disease and diabetes mellitus
Critical limb threatening ischemia, right lower extremity
Acute kidney injury (EVELINE), improved
Hyperkalemia due to EVELINE, resolved
Chronic Diagnoses:�
Chronic heart failure with reduced ejection fraction, ejection fraction at 20 to 25%
Hypertension
Atrial fibrillation, presumed paroxysmal
Xmt-nltvcsz-mfimskmno diabetes mellitus
Consultations:�
Vascular surgery
Podiatry
Infectious disease
Nephrology
Procedures:�
Angiogram by vascular 05/23
Clinical course:�
This is a 87-year-old female with past medical history as stated above, who was sent in from the wound clinic for evaluation of her second right gangrenous toe with x-ray noted gas.
Problem 1:
Right second toe gangrene with right lower extremity critical limb ischemia.
She underwent angiogram by vascular on 05/23.
Surgical and nonsurgical options were discussed with the patient by vascular, and the patient with the family have decided against any further surgical intervention.
She can follow-up with [facility] outpatient.
Of note, her wound culture from the gangrenous toe grew strep agalactiae and proteus.
She did receive Unasyn while in the hospital, and was recommended to continue with oral Augmentin for 7 more days following discharge.
Problem 2:
EVELINE, improved.
Her serum creatinine down trended from 2.1 on admission to 1.4 on the day of discharge. Her baseline serum creatinine was at 1.0.
Her prior to admission Entresto and Aldactone were discontinued.
She can check her BMP outpatient in 1 week with result to her PCP.
Problem 3:
Hyperkalemia, resolved.
This was treated with lokelma.
Her prior to admission Entresto and Aldactone were discontinued.
As for the rest of her medical problems, they were stable during her hospital stay.
Discharge Plan
-
Patient Disposition: Home with Home Care
Discharge Diagnosis/Procedures: Right second toe gangrene with R leg critical limb ischemia
Condition: Fair
Diet: As tolerated
Activity: As tolerated
Driving Restrictions: No driving
Blood Work: BMP in 1 week, result to PCP
Specialty Instructions: Weigh Daily- Call MD for wt gain/loss 3 lbs overnight/5 lbs in 1 week
Referrals:
Dylan Pretty DO [Family Provider] - in less than 1 week
Additional Discharge Medication Instructions: stop Entresto and spironolactone (due to kidney injury)
Continue lasix only NEEDED for increase in weight
Continue Augmentin for 1 week
Prescriptions:
New
amoxicillin-pot clavulanate [Augmentin] 500-125 mg tablet
1 tab PO Q12H 7 Days Qty: 14 0RF
Continued
carvedilol [Coreg] 6.25 mg Tablet
6.25 mg PO BID
allopurinol 100 mg Tablet
100 mg PO DAILY
glimepiride 2 mg Tablet
2 mg PO DAILY
Eliquis 2.5 mg Tablet
2.5 mg PO BID
Changed
furosemide [Lasix] 20 mg Tablet
20 mg PO DAILY PRN (Reason: Fluid Retention/Swelling) Qty: 0 0RF
Discontinued
minocycline 100 mg Capsule
100 mg PO BID
Patient Comments:
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
spironolactone 25 mg Tablet
25 mg PO DAILY
Entresto 24-26 mg Tablet
1 tab PO BID
Discharge Orders:
Discharge Patient (As Directed); Ordered 05/26/23
Ordered By: Gypsy Roman
Discharge Date and Time
Discharge Date/Time: 05/26/23 12:16
Print Language: SAO TOMEAN
--- NOTE | 2023-05-26 16:05 | CM ---
met with patient who is stable for discharge home today with [facility].called daryl from [facility] to alert her ,family to transport home.
== END 2023-05-26 12:16 | disposition home health service (06) | DRG 264 ==
LOC: 3 WEST ACU 15:33
PROVIDERS: Internal Medicine; ADMITTING PHYSICIAN Internal Medicine; ATTENDING PHYSICIAN Internal Medicine; CONSULT PHYSICIAN Podiatrist Foot Surgery; CONSULT PHYSICIAN Specialist; CONSULT PHYSICIAN Student in an Organized Health Care Education/Training Program; EMERGENCY PHYSICIAN Emergency Medicine; FAMILY PHYSICIAN Family Medicine; OTHER PHYSICIAN Surgery Vascular Surgery
PROC: 0JBQ0ZZ Excision of Right Foot Subcutaneous Tissue and Fascia, Open Approach (ICD-10-PCS; 2023-05-19)
PROC: B41F1ZZ Fluoroscopy of Right Lower Extremity Arteries using Low Osmolar Contrast (ICD-10-PCS; 2023-05-24)
PROC: B41C1ZZ Fluoroscopy of Pelvic Arteries using Low Osmolar Contrast (ICD-10-PCS; 2023-05-24)
PROC: B4101ZZ Fluoroscopy of Abdominal Aorta using Low Osmolar Contrast (ICD-10-PCS; 2023-05-24)
DX: E11.52 Type 2 diabetes mellitus with diabetic peripheral angiopathy with gangrene (principal); E44.0 Moderate protein-calorie malnutrition; I70.261 Atherosclerosis of native arteries of extremities with gangrene, right leg; E87.20 Acidosis, unspecified; I13.0 Hypertensive heart and chronic kidney disease with heart failure and stage 1 through stage 4 chronic kidney disease, or unspecified chronic kidney disease; N17.9 Acute kidney failure, unspecified; E87.1 Hypo-osmolality and hyponatremia; I50.22 Chronic systolic (congestive) heart failure; I48.0 Paroxysmal atrial fibrillation; L03.031 Cellulitis of right toe; E11.22 Type 2 diabetes mellitus with diabetic chronic kidney disease; I25.10 Atherosclerotic heart disease of native coronary artery without angina pectoris; E78.00 Pure hypercholesterolemia, unspecified; B95.4 Other streptococcus as the cause of diseases classified elsewhere; B96.4 Proteus (mirabilis) (morganii) as the cause of diseases classified elsewhere; E87.5 Hyperkalemia; N18.30 Chronic kidney disease, stage 3 unspecified; Z79.01 Long term (current) use of anticoagulants; Z91.040 Latex allergy status; Z79.84 Long term (current) use of oral hypoglycemic drugs; Z68.20 Body mass index [BMI] 20.0-20.9, adult
CPT/HCPCS: 36246; 73660; 75625; 75716; 76775; 76937; 80048; 80053; 80202; 81003; 82570; 82962; 83036; 83605; 83735; 83880; 84300; 85025; 85027; 85610; 85652; 85730; 86140; 87040; 87070; 87077; 87147; 87186; 87205; 93970; 96360; 96361; 97116; 97162; 97165; 99285; C1894